=== PATIENT | female | born 1980 | race Caucasian/White ===

== ENCOUNTER 2019-11-03 09:03 | Outpatient (CLI) | payer OTHER, SELFPAY ==
--- NOTE | 2019-11-03 | EST_ITS ---
Patient Info Name: Zoe Magallon Age: 39 years : 1980 Gender: Female Ht: 66 in Wt: 165 lbs BSA: 1.88 m2 Technical Quality: Good Exam Date: 11/03/2019 9:31 AM Exam Location: [facility] Pulmonary Patient Status: Outpatient Admit Date: 11/03/2019 Staff Ordering Physician: LayAlona PA-C Blow Machine Tender Starch Spraying: Jennifer Naylor RDCS Attending Provider: VINICIO BAEZ DO Exercise Technologist: Roosevelt Lepe RDCS, RT Exercise Physician: Davdison Baez DO Exam Type: CA stress echo Study Info Indications R53.83 - Other fatigue Treadmill exercise stress echocardiogram is performed. Summary 1. 1. Negative [place] exercise stress test for ischemic ST changes by ECG criteria. 2. 2. Good functional capacity, achieving 10 METs of workload. 3. 3. Appropriate HR response to exercise. 4. 4. Appropriate HR recovery at 1 minute post exercise. 5. 5. Negative stress echocardiogram for ischemia by wall motion analysis. 6. 6. Patient informed of the above results. Stress Echo Findings Left Ventricle Appropriate increasein LV endocardial thickening with systole. Appropriate augmentation of contractility with systole. No wall motion abnormality. Left Ventricle Normal LV systolic function, no wall motion abnormality. Protocol: [place] Stress ECG Details Stage: REST Duration (min): 0 min : 55 sec Speed (mph): 0.0 Grade (%): 0 HR (bpm): 80 SBP (mmHg): 137 DBP (mmHg): 85 METS: --- Stage: REST Duration (min): 8 min : 14 sec Speed (mph): 0.0 Grade (%): 0 HR (bpm): 80 SBP (mmHg): 137 DBP (mmHg): 85 METS: --- Stage: STAGE 1 Duration (min): 1 min : 0 sec Speed (mph): 1.7 Grade (%): 10 HR (bpm): 113 SBP (mmHg): 137 DBP (mmHg): 85 METS: --- Stage: STAGE 1 Duration (min): 2 min : 0 sec Speed (mph): 1.7 Grade (%): 10 HR (bpm): 121 SBP (mmHg): 137 DBP (mmHg): 85 METS: --- Stage: STAGE 1 Duration (min): 3 min : 0 sec Speed (mph): 1.7 Grade (%): 10 HR (bpm): 126 SBP (mmHg): 152 DBP (mmHg): 69 METS: --- Stage: STAGE 2 Duration (min): 1 min : 0 sec Speed (mph): 2.5 Grade (%): 12 HR (bpm): 135 SBP (mmHg): 152 DBP (mmHg): 69 METS: --- Stage: STAGE 2 Duration (min): 2 min : 0 sec Speed (mph): 2.5 Grade (%): 12 HR (bpm): 142 SBP (mmHg): 166 DBP (mmHg): 72 METS: --- Stage: STAGE 2 Duration (min): 3 min : 0 sec Speed (mph): 2.5 Grade (%): 12 HR (bpm): 148 SBP (mmHg): 166 DBP (mmHg): 72 METS: --- Stage: STAGE 3 Duration (min): 1 min : 0 sec Speed (mph): 3.4 Grade (%): 14 HR (bpm): 159 SBP (mmHg): 170 DBP (mmHg): 72 METS: --- Stage: STAGE 3 Duration (min): 2 min : 0 sec Speed (mph): 3.4 Grade (%): 14 HR (bpm): 172 SBP (mmHg): 170 DBP (mmHg): 72 METS: --- Stage: STAGE 3 Duration (min): 3 min : 0 sec Speed (mph): 3.4 Grade (%): 14 HR (bpm): 171
== END 2019-11-03 09:04 | disposition home or self-care (01) ==
PROVIDERS: PCP Physician Assistant; Visit Provider Physician Assistant
DX: R53.83 Other fatigue (principal)
CPT/HCPCS: 93351

== ENCOUNTER 2021-12-02 11:53 | Outpatient (CLI) | payer OTHER, SELFPAY ==
--- NOTE | 2021-12-02 12:47 | ECG_ITS ---
Measurements Intervals [place] Rate: 82 P: 30 MS: 160 QRS: 16 QRSD: 82 T: 31 QT: 345 QTc: 403 Interpretive Statements SINUS RHYTHM NORMAL ECG Electronically Signed On 12-02-2021 13:14:13 [employer] by Davidson Wall D.O.
[2021-12-02 13:05] LABS: Basophils Absolute Auto 0.1 K/mm3 (0.0-0.1); Eosinophils Absolute Auto 0.1 K/mm3 (0-0.3); Eosinophils Percent Auto 1.4 % (0-4.4); Hematocrit 38.7 % (37.0-47.0); Hemoglobin 13.4 g/dL (12.0-15.0); Immature Granulocyte Absolute 0.01 K/mm3 (0.00-0.031); Immature Granulocyte Percent A 0.2 % (0-0.5); Lymphocytes Absolute Auto 1.57 K/mm3 (0.9-3.2); Lymphocytes Percent Auto 32.1 % (18.3-44.2); Mean Corpuscular HGB Conc 34.6 g/dl (32-36); Mean Corpuscular Hemoglobin 31.8 pg (26-34); Mean Corpuscular Volume 91.7 fl (80-100); Mean Platelet Volume 9.1 fl (7.4-10.4); Monocytes Absolute Auto 0.4 K/mm3 (0.1-0.6); Monocytes Percent Auto 7.8 % (2.6-8.5); Neutrophils Absolute Auto 2.8 K/mm3 (1.3-6.7); Neutrophils Percent Auto 57.5 % (45.5-73.1); Platelet Count Result 239 k/mm3 (150-375); Red Blood Count 4.22 M/mm3 (4.2-5.4); Red Cell Distribution Width 11.4 % (11.5-14.5); White Blood Count 4.9 K/mm3 (4.5-10.0)
[2021-12-02 13:17] LABS: Alanine Aminotransferase 18 U/L (4-35); Albumin Level 4.7 g/dL (3.5-5.1); Alkaline Phosphatase 48 U/L (38-126); Anion Gap 9 mmol/L (8-16); Aspartate Amino Transferase 26 U/L (14-36); Bilirubin,Total 0.6 mg/dL (0.2-1.3); Blood Urea Nitrogen 14 mg/dL (7-17); Calcium 9.5 mg/dL (8.4-10.2); Carbon Dioxide 28 mmol/L (22-30); Chloride 100 mmol/L (98-107); Estimated Glomerular Filt Rate > 60; Glucose 92 mg/dL (65-110); Potassium 4.1 mmol/L (3.4-5.0); Sodium 137 mmol/L (137-145)
[2021-12-02 13:20] LABS: INR 0.9; Prothrombin Time 12.1 Seconds (11.1-14.7)
[2021-12-02 13:21] LABS: Partial Thromboplastin Time 23.2 SECONDS (22.3-36.8)
== END 2021-12-02 11:54 | disposition home or self-care (01) ==
LOC: ANHSURGERY 11:58
PROVIDERS: PCP Physician Assistant; Visit Provider Urology
DX: N81.2 Incomplete uterovaginal prolapse (principal); N39.3 Stress incontinence (female) (male); Z51.81 Encounter for therapeutic drug level monitoring; Z79.899 Other long term (current) drug therapy
CPT/HCPCS: 36415; 80053; 85025; 85610; 85730; 86850; 86870; 86880; 86900; 86901; 86902; 86905; 86971; 87086; 93005

== ENCOUNTER → 2021-12-12 02:49 | Outpatient (CLI) | payer OTHER, SELFPAY ==
[2021-12-12 18:24] LABS: SARS-CoV-2 RNA PCR Negative
== END ==
PROVIDERS: PCP Physician Assistant; Visit Provider Urology
DX: Z01.812 Encounter for preprocedural laboratory examination (principal); Z20.822 Contact with and (suspected) exposure to COVID-19
CPT/HCPCS: C9803; U0003; U0005

== ENCOUNTER 2021-12-15 02:13 | Day surgery (SDC) | payer OTHER, SELFPAY ==
--- NOTE | 2021-12-02 11:51 | PC.NURSE ---
Report to the Outpatient Waiting Room, entrance under the green pavilion located off [facility], at time _0600_ on date _12/15/21_. OR Time: _0730__. - You and your visitor will be asked a series of questions to screen for COVID 19 for your protection. - A mask is required within the hospital. - NO visitors are allowed at this time. Patient visitors will be guided where to wait when not with patient. Preoperative COVID Testing Requirements: COVID TEST SCHEDULED FOR Wednesday12/12/21 @ 0920 No COVID Test needed if: (proof is required; if not received patient will have Rapid Test prior to entry) - Patient has received COVID Vaccine at least 14 days prior to procedure date or - Patient has positive COVID test result within last 90 days of surgery date. COVID Test needed if above criteria is not met If not COVID vaccinated a COVID test must be conducted within 72 hours of surgery and patient is asked to isolate self from time of testing until procedure. You will go to the [facility] for your COVID testing. The [facility] site is located at the corner of [address] [facility]. You will only be called if COVID results are positive and your surgeon may reschedule your elective surgery date. Patients may have clear liquids (water, carbonated beverages, clear teas, apple juice) until 3 hours prior to surgery with a maximum of 20 ounces. (0430 AM) - No food from midnight until time of surgery - Infants may have breast milk until 4 hours before surgery, infant formula 6 hours prior to surgery. - Children will be allowed to drink immediately following surgery. If applicable, please bring a bottle or sippy cup to assist with drinking. Juice, water, soda, and popsicles are readily available. For infants on formula, please bring formula the day of surgery. Pacifiers are allowed. Take the following medications with a SIP of water the morning of surgery: _TIROSINT, CYTOMEL___ Medications to discontinue per DR. BLOUNT - __ASPIRIN INSTRUCTED, PLAQUENIL & PHENTERMINE PER DR. MAYBERRY Please no make-up, nail bermudian, hairspray, perfume, deodorant, or body powder the day of surgery. No jewelry (including any body piercings) or valuables the day of surgery, leave them at home. Please take a shower or bath the night before, or the morning of, surgery with an antibacterial soap. Wear comfortable, loose fitting clothing. Children are encouraged to wear pajamas. - Jewelry must be removed prior to entering the operating room. Rings and piercings that are not removed may be cut off. - The hospital will not accept responsibility for valuables. - Please leave all valuables, including medications, at home the day of surgery. If you are going home after surgery, a licensed company truck driver must drive you home. - NO public transportation without another adult. - We recommend that an adult stay with you for 24 hours following discharge. - We also recommend that you do not drive, make important decision, drink alcoholic beverages, or take any drugs that were not prescribed by your health care provider for at least 24 hours after your discharge time. For Pediatric surgeries, we recommend two adults accompany the child home (only one inside the building at this time). Follow any additional instructions given to you from your surgeon. Telephone instructions given to ___PT and asked if any additional questions and then verbalized understanding. Patient advised to call surgeon office or pre surgery nurse liaison, [facility] @ [phone] if any additional questions.
[2021-12-02 12:21] VITALS: BP 142/88; PULSE 90; RESP 18; TEMP 37.1; O2SAT 98; BMI 25.1
--- NOTE | 2021-12-02 13:46 | PC.NURSE ---
ANNETTE WITH DR. JOSEPH' OFFICE INFORMED OF PT'S TRIP SCHEDULED 12/03/21 TO [facility] AND RETURNING 12/06/21 ALONG WITH PT [facility] HX OF STROKE DX 11/21/21 WITH F/O TESTING OF LUMBAR PUNCTURE, ECHO & MRA'S SCHEDULED 12/10/21 & 12/13/21 WELL APPT TO SEE NEUROSURGEON 01/22/22 FOR 6 BULGING DISK IN C-SPINE. STATES WILL INFORM DR. BLOUNT
--- NOTE | 2021-12-12 08:11 | P.HP_ITS ---
H&P: HPI History of Present Illness Date/Time: 12/12/21 08:11 41 yo female with POP and SONDRA Chief Complaint: POP/SONDRA Review of Systems Review of Systems: All systems reviewed & are unremarkable except as noted in HPI and below [facility] Social History Social History Smoking status: Former smoker Tobacco type: cigarettes Second hand tobacco smoke exposure: Yes (SOCIAL GATHERINGS) Smoking end date: 11/15/21 Additional smoking assessment comments: STATES SOCIAL SMOKER 1PK/MONTH/18YRS Alcohol intake: current Drinks per week: 6 Substance use: never Substance use type: does not use Spiritual care concerns: No Meds Home Medications and Allergies Home Medications Medication Instructions Recorded Confirmed Type aspirin 81 mg QAM 12/02/21 12/02/21 History atorvastatin [Lipitor] 40 mg PO HS 12/02/21 12/02/21 History hydroxychloroquine [Plaquenil] 200 mg PO BID 12/02/21 12/02/21 History levothyroxine [Tirosint] 150 mcg PO QAM 12/02/21 12/02/21 History liothyronine [Cytomel] 10 mcg PO BID 12/02/21 12/02/21 History phentermine 15 mg PO BID 12/02/21 12/02/21 History Allergies Allergy/AdvReac Type Severity Reaction Status Date / Time Sulfa (Sulfonamide AdvReac Rash Verified 12/02/21 12:16 Antibiotics) Exam Narrative: cystocele at +1. [place] at 0 to -1. + urethral mobility Assessment and Plan Assessment and plan (1) Uterine prolapse: Code(s): N81.4 - Uterovaginal prolapse, unspecified Status: Acute Assessment and Plan: robotic SCP (2) SONDRA (stress urinary incontinence, female): Code(s): N39.3 - Stress incontinence (female) (male) Status: Acute Assessment and Plan: urethral sling Additional Plan will need anticoagulation
--- NOTE | 2021-12-14 09:42 | PM.IMHP ---
H&P: HPI History of Present Illness Date/Time: 12/14/21 09:42 41-year-old multiparous who is admitted for robotic supracervical hysterectomy and bilateral salpingectomy secondary to uterine prolapse. She complains of a bulge and chronic discomfort. She wears pads and leaks small amounts urine daily she leaks with coughing laughing and sneezing. She has been evaluated by Dr. Olivia and undergo a sacral colpopexy some attaining asleep. Risks and benefits of this procedure reviewed by Dr. mercado and agree details. Chief Complaint: Uterine prolapse Review of Systems Review of Systems: All systems reviewed & are unremarkable except as noted in HPI and below [facility] Social History Social History Smoking status: Former smoker Tobacco type: cigarettes Second hand tobacco smoke exposure: Yes (SOCIAL GATHERINGS) Smoking end date: 11/15/21 Additional smoking assessment comments: STATES SOCIAL SMOKER 1PK/MONTH/18YRS Alcohol intake: current Drinks per week: 6 Substance use: never Substance use type: does not use Spiritual care concerns: No Meds Home Medications and Allergies Home Medications Medication Instructions Recorded Confirmed Type aspirin 81 mg QAM 12/02/21 12/02/21 History atorvastatin [Lipitor] 40 mg PO HS 12/02/21 12/02/21 History hydroxychloroquine [Plaquenil] 200 mg PO BID 12/02/21 12/02/21 History levothyroxine [Tirosint] 150 mcg PO QAM 12/02/21 12/02/21 History liothyronine [Cytomel] 10 mcg PO BID 12/02/21 12/02/21 History phentermine 15 mg PO BID 12/02/21 12/02/21 History Allergies Allergy/AdvReac Type Severity Reaction Status Date / Time Sulfa (Sulfonamide AdvReac Rash Verified 12/02/21 12:16 Antibiotics) Exam Const: General: no acute distress Eyes: General: appearance normal, both eyes and all related structures Neck: Neck: supple and no JVD Thyroid: thyroid normal Resp: Effort & Inspection: normal respiratory effort Auscultation: clear to auscultation bilaterally Cardio: Rate: regular rate Rhythm: regular rhythm GI: Inspection: non-distended GI Palp: Yes Soft to palpation, No Tenderness to palpation present (GI) and No Guarding due to palpation present (GI) Auscultation: normal bowel sounds : External Female Exam: normal external appearance Speculum Exam - Vagina: normal appearance of the vagina Speculum Exam - Cervix: Cervical os closed (Second-degree prolapse) Bimanual exam- vagina & uterus: uterine shape normal Bimanual Exam- Adnexa, other: normal adnexae Skin: General skin exam: no rashes or lesions noted Extrem: General: normal to inspection and no edema Psych: Mental Status: mental status grossly normal Affect: normal affect Assessment and Plan Additional Plan Impression: Uterine prolapse Plan: Robotic supracervical hysterectomy and bilateral salpingectomy
[2021-12-15] VITALS (12 sets, daily range): BP systolic 100–135; BP diastolic 57–81; PULSE 72–104; RESP 10–18; TEMP 36.3–37.3; O2SAT 96–100
[2021-12-15] MEDS: ACETAMINOPHEN 500 MG TABLET 1000 MG PO (06:16)
[2021-12-15] MEDS: KETOROLAC 15 MG/ML VIAL (*BKC) IV PUSH (06:26)
[2021-12-15] MEDS: LACTATED RINGERS 1,000 ML 30 ML IV CONT ×2 (06:30→11:00)
--- NOTE | 2021-12-15 06:58 | WPDANESEPPF ---
Anes - Initial Pre Proc Eval Procedure: Operation Date: 12/15/21 07:30 Proposed Procedures p Robotic Sacrocolpopexy - Josh Harman MD s Urethral Sling - Josh Harman MD s Robotic Assisted Supracervical Hysterectomy with Bilateral Salpingectomy - Jase Gallo MD Date/Time: 12/15/21 06:58 Surgeon: Josh Harman MD Pre Op Diagnosis: incomplete uterovaginal prolapse, stress in cont Patient Data Age: 41 Gender: F Height: 1.66 m Weight: 70.5 kg Last Vital Signs Temp 36.8 C 12/15/21 06:03 Pulse 74 12/15/21 06:03 Resp 16 12/15/21 06:03 BP 135/81 12/15/21 06:03 Pulse Ox 100 12/15/21 06:03 Allergies Allergy/AdvReac Type Severity Reaction Status Date / Time Sulfa (Sulfonamide AdvReac Intermediate Rash Verified 12/15/21 06:12 Antibiotics) Home Medications Medication Instructions Recorded Confirmed Type aspirin 81 mg QAM 12/02/21 12/15/21 History atorvastatin [Lipitor] 40 mg PO HS 12/02/21 12/15/21 History hydroxychloroquine [Plaquenil] 200 mg PO BID 12/02/21 12/15/21 History levothyroxine [Tirosint] 150 mcg PO QAM 12/02/21 12/15/21 History liothyronine [Cytomel] 10 mcg PO BID 12/02/21 12/15/21 History phentermine 15 mg PO BID 12/02/21 12/15/21 History Patient hx anesthesia problems: post op nausea/vomiting Family hx anesthesia problems: none Results Review: All pre-operative results and documents have been reviewed as part of the pre-operative evaluation. [facility] Past Medical History Medical History CVA (cerebral vascular accident) Hyperlipidemia Pulmonary embolism Rheumatoid arthritis Social History Social History Smoking status: Former smoker Tobacco type: cigarettes Second hand tobacco smoke exposure: Yes (SOCIAL GATHERINGS) Smoking end date: 11/15/21 Additional smoking assessment comments: STATES SOCIAL SMOKER 1PK/MONTH/18YRS Alcohol intake: current Drinks per week: 6 Substance use: never Substance use type: does not use Living arrangements: with family Spiritual care concerns: No Anes - Eval Final PreProcedure Day of Procedure 12/15/21 06:58 Patient weight: normal Heart: regular rate and rhythm Lungs: clear to auscultation Airway: Mallampati scale class II Neurological: alert and oriented Last oral intake: >/= 8 hours ASA classification: III Emergent: no Anesthetic plan: proceed Anesthesia type and monitoring: general ETT and standard monitoring Results Review: All pre-operative results and documents have been reviewed as part of the pre-operative evaluation. Informed Consent: The patient's anesthetic plan and its attendant risks and benefits were discussed with the patient/family/POA. Questions were solicited and answers provided to the satisfaction of the patient/family/POA.
--- NOTE | 2021-12-15 07:06 | WPDHPUPDATE1 ---
History and Physical Update Update Date/Time: 12/15/21 07:06 History and Physical has been reviewed, including an updated exam of the patient. There are NO changes in the patient's condition. Risks, benefits, and alternatives have been discussed and questions answered. Patient agrees to proceed with procedure.
--- NOTE | 2021-12-15 07:20 | WPDHPUPDATE1 ---
History and Physical Update Update Date/Time: 12/15/21 07:20 History and Physical has been reviewed, including an updated exam of the patient. There are NO changes in the patient's condition. Risks, benefits, and alternatives have been discussed and questions answered. Patient agrees to proceed with procedure.
[2021-12-15] MEDS: HEPARIN SODIUM 5,000 UNITS/ML VIAL 5000 UNITS SUB-Q (07:23)
[2021-12-15] MEDS: SCOPOLAMINE 1.5 MG PATCH TRANSDERM (07:24)
[2021-12-15] MEDS: ceFAZolin 2 GM/D5W 50 ML 2 GM/50 ML BAG IVPB (07:33)
[2021-12-15] MEDS: metroNIDAZOLE 500 MG/ISO 100ML 500 MG/100 ML BAG 100 MG IVPB ×2 (07:45→16:19)
[2021-12-15] MEDS: BUPIVACAINE/EPINEPHRINE 0.25% 10 ML VIAL 20 ML INFILTRATE (08:34)
--- NOTE | 2021-12-15 08:36 | W.PM.PROC2 ---
Procedure Note - Detailed Date of Procedure 12/15/21 Pre-op Diagnosis incomplete uterovaginal prolapse, stress in cont Post-op Diagnosis same Procedure Performed Robotic supracervical hysterectomy and bilateral salpingectomy Surgeon Arnel Jc MD Anesthesia general Indications This is a 41-year-old female with uterine prolapse and history of partial salpingectomy on the left due to an ectopic Findings Portion of left fallopian tube was present. Normal-appearing ovaries and normal-appearing right tube. Uterine prolapse was present with the normal in size uterus Description of Procedure The patient was prepped and draped in the normal sterile fashion placed in the dorsal lithotomy position. Under excellent general trach anesthesia weighted speculum placed posterior fornix vagina. Anterior lip of cervix grasped with single-tooth tenaculum and a Denney's cannula inserted to attached to be attached later for uterine manipulation. The bladder was then drained with a 16 [place]ic catheter. The gloves were changed and Dr. Harman proceeded to dock the robot. Please see his operative report for full details. Once robot was docked the left fallopian tube was grasped and that portion removed without difficulty. A the right fallopian tube was then grasped and from its ovarian connection and brought to its origin in the uterus. Next the left round ligament grasped, burned, cut. Anteriorly a bladder flap was formed by sharply dissecting the peritoneum and reflecting the bladder caudally to the opposite round ligament which was clamped, burned, cut. Next the utero-ovarian ligament on the left was skeletonized to conserve the left ovary this was clamped, burned, cut brought to the level of previously cut round ligament. In like fashion the right ovary was conserved by clamping burning and cutting the utero-ovarian ligament on the right and brought to the level of previously cut round ligament. The left cardinal and broad ligaments were then serially skeletonized clamping burning cutting hugging the cervix and uterus until the uterine vessels could be seen on the left. These were individually clamped, burned, cut. In like fashion the cardinal broad ligaments on the right were serially skeletonized. These were clamped, burned, cut hugging the cervix and uterus until the uterine vessels could be seen on the right. These were individually clamped, burned, cut. Blanching the uterus was seen after blood supply was controlled the uterus was then bivalved down to the supracervical portion and a supracervical incision was made and the uterus passed off in a bag under to have descent. Blood loss at that point was 5cc. Dr. Harman took over from there. All sponge, needle, instrument counts were correct and the patient was doing well the time of this dictation blood loss to this point was 25cc Estimated Blood Loss 25 Drains No Packing No Pathology yes Complications No immediate complications Condition stable Disposition no change
--- NOTE | 2021-12-15 10:49 | W.PM.PROC2 ---
Procedure Note - Detailed Date of Procedure 12/15/21 Pre-op Diagnosis incomplete uterovaginal prolapse, stress incontinence Post-op Diagnosis same Procedure Performed Robotic assisted laparoscopic sacral colpopexy Cystoscopy Surgeon Josh Harman MD Anesthesia general Indications A woman with uterine prolapse as well as stress incontinence. She desires surgical correction. She is here for the above. She understands risks of bleeding, infection, diskitis, damage to surrounding organs, bowel injury, bowel obstruction, mesh related complications including exposure and extrusion, postoperative voiding dysfunction including incontinence and retention, need for ancillary procedures, dyspareunia, recurrence of prolapse, and other perioperative intraoperative postoperative complications. She agrees to proceed. Findings See below Description of Procedure She was correctly identified. Informed consent obtained. She from the operating room. She was given general anesthesia. She was given appropriate perioperative antibiotics. She was placed a low lithotomy position. Pressure points were padded. A time-out performed. She has a history of DVT and pulmonary embolus. Bilateral SCDs were placed. She was given preoperative heparin. She will be sent home on Lovenox. She understands she is at higher risk of thromboembolic disease. I marked out the skin 3 fingerbreadths cephalad to the umbilicus. I anesthetized the skin. I incised the skin. I dissected down to the fascia. I grasped the fascia with Amador clamps. I entered the fascia sharply in a type technique. I placed sutures for later fascial closure. I placed a midline trocar. I examined the abdomen. There is no sign of any injury. Under direct vision I placed 2 additional trocars in the right upper quadrant and 2 additional trocars the left upper quadrant. She was placed in steep Trendelenburg. The robot was docked. Her pearl technician completed their portion of the procedure. Please see that operative report for details. I then sat at the console. The Sizer in the vagina created plane on the anterior and posterior vaginal wall. I took great care not to injure the vagina, bladder, or rectum. I introduced the mesh into the abdomen. I sewed the anterior leaflet of mesh on the anterior vaginal wall. I sewed the posterior leaflet of mesh on the posterior vaginal wall. This was done with several sutures of 2 0 [place]. I reflected the colon laterally. I opened the posterior peritoneum over the sacral promontory. I carried this into the cul-de-sac. I freed up the edges for later retroperitonealization. I located the anterior longitudinal ligament the sacrum. I cleaned off all fatty tissues. I then tensioned my mesh appropriately. I did a vaginal exam the bedside. I assured prolapse reduction without undue tension. I then sewed the proximal leaflet of mesh onto the anterior longitudinal ligament of the sacrum with several sutures of 2 0 [place]. I then used a 2 0 Monocryl to completely and meticulously retroperitonealized all mesh. I allowed the colon to go back to its normal anatomic location. There is no sign of any impingement. The specimen was then removed. All ports removed. Fascia was tied down. Skin was closed with Monocryl and surgical glue. She was repositioned and prepped for urethral sling. I marked out the inner thigh incisions. I anesthetized the skin and made the incisions. I then anesthetized the anterior vaginal wall at the mid urethra. I made a 1 cm incision. I dissected out laterally. I noted some blood at the meatus. This prompted me to perform a cystoscopy. Her bladder is examined. There was no bladder injury. There is no tumors, stones, foreign bodies, stitches, abnormal red patches. Both ureters were seen to excrete clear yellow urine. I then looked at the bladder neck. There was some trauma to the urethra bladder neck junction at the 7 o'cl
[2021-12-15] MEDS: ONDANSETRON INJ 4 MG/2 ML VIAL IV PUSH ×2 (10:55→11:55)
[2021-12-15] MEDS: fentaNYL CITRATE INJ (*CRX) 100 MCG/2 ML VIAL 25 MCG IV PUSH (11:56)
--- NOTE | 2021-12-15 12:15 | PC.NURSE ---
This patient, Zoe Magallon, was received from PACU on 12/15/21 at 1215. Patient/family oriented to unit policies and routines
[2021-12-15] MEDS: KCL 20 MEQ/D5/0.45% SOD CHL 1,000 ML 100 ML IV CONT (12:51)
[2021-12-15] MEDS: KETOROLAC 30 MG/ML VIAL (*BKC) IV PUSH ×2 (12:54→19:07)
[2021-12-15] MEDS: MORPHINE SULFATE (*CRX) 2 MG/ML INJ IV PUSH ×5 (14:10→23:08)
[2021-12-15] MEDS: SIMETHICONE 80 MG TAB.CHEW PO ×4 (15:11→23:08)
[2021-12-16] MEDS: metroNIDAZOLE 500 MG/ISO 100ML 500 MG/100 ML BAG 100 MG IVPB ×2 (00:05→08:24)
[2021-12-16] MEDS: SIMETHICONE 80 MG TAB.CHEW PO ×3 (01:09→08:32)
[2021-12-16] MEDS: KETOROLAC 30 MG/ML VIAL (*BKC) IV PUSH (01:09)
[2021-12-16 04:50] VITALS: BP 100/58; PULSE 64; RESP 16; TEMP 37; O2SAT 98
[2021-12-16] MEDS: traMADol HCL (*CRX) 50 MG TABLET PO ×2 (04:55→08:31)
--- NOTE | 2021-12-16 07:27 | PM.DS ---
DS: Admitting Diagnosis Discharge Date 12/16/2021 Admitting Diagnosis uterine prolapse /stress urinary incontinence DS: Summary Hospital Course Hospital Course: patient was admitted for supracervical hysterectomy bilateral salpingectomy as well as sacral colpopexy and. Sling. The procedure was remarkable for not performing the sling by Dr. Harman. There was some blood in the urethral meatus and he elected not to perform that portion. We also elected to keep the catheter and. Her hospital course was otherwise unremarkable. She remained afebrile. She was up, , ambulating, generally without complaints. Time Spent with Patient Time attestation: Total time spent providing and/or coordinating discharge services: Exam Const: General: no acute distress Eyes: General: appearance normal, both eyes and all related structures Neck: Neck: supple and no JVD Thyroid: thyroid normal Resp: Effort & Inspection: normal respiratory effort Auscultation: clear to auscultation bilaterally Cardio: Rate: regular rate Rhythm: regular rhythm GI: Inspection: non-distended GI Palp: Yes Soft to palpation, No Tenderness to palpation present (GI) and No Guarding due to palpation present (GI) Auscultation: normal bowel sounds : General: Yes bladder normal to palpation External Female Exam: normal external appearance Speculum Exam - Vagina: normal vaginal discharge and No vaginal bleeding Speculum Exam - Cervix: nontender Bimanual exam- vagina & uterus: bladder normal to palpation and No Cervical tenderness present OB/external & speculum: No vaginal bleeding Skin: General skin exam: no rashes or lesions noted Extrem: General: normal to inspection and no edema Psych: Mental Status: mental status grossly normal Affect: normal affect DS: Data Data Completed and Pending Pending studies at discharge: Pending at discharge 12/15/21 08:24 Surgical [PTH] Routine Discharge Plan Discharge Patient Disposition: Home, Self-Care Discharge Instructions: Remove the Scopolamine patch that was placed behind your ear in 72 hours or less. Wash your hands after touching. Stand Alone Forms: General Discharge Instructions Discharge Medications: New docusate sodium [Colace] 100 mg capsule 100 mg PO BID Qty: 60 RF: 0 hydrocodone-acetaminophen 5-325 mg tablet 1 tablet PO Q6H PRN (Reason: pain) Qty: 20 RF: 0 enoxaparin [Lovenox] 30 mg/0.3 mL syringe 30 mg subcut DAILY 10 Days Qty: 3 RF: 0 Continued atorvastatin [Lipitor] 40 mg Tablet 40 mg PO HS RF: 0 phentermine 15 mg Capsule 15 mg PO BID RF: 0 liothyronine [Cytomel] 5 mcg Tablet 10 mcg PO BID RF: 0 hydroxychloroquine [Plaquenil] 200 mg tablet 200 mg PO BID RF: 0 levothyroxine [Tirosint] 150 mcg capsule 150 mcg PO QAM RF: 0 Held aspirin 81 mg tablet,delayed release (DR/EC) 81 mg QAM RF: 0 Hold Instructions: Resume on 12/17/21.
--- NOTE | 2021-12-16 07:30 | PM.GYNPNOP ---
IMMIGRATION CONSULTANT - A/P Postoperative Procedures: Procedures Operation Date: 12/15/21 07:30 Actual Procedure Side Surgeon p Robotic Sacrocolpopexy Josh Harman MD s Urethral Sling Josh Harman MD s Robotic Assisted Supracervical Hysterectomy with Bilateral Salpingectomy Bilateral Arnel Jc MD Time Spent With Patient Time: Total time spent is greater than 50% in coordination of care (as documented) at patient's floor/unit and/or counseling patient: Time with patient: less than 15 minutes IMMIGRATION CONSULTANT- PN:Subj Post-Op Subjective Date/time seen: 12/16/21 07:30 No complaints Review of Systems Review of Systems: All systems reviewed & are unremarkable except as noted in HPI and below Exam Const: General: no acute distress Eyes: General: appearance normal, both eyes and all related structures Neck: Neck: supple and no JVD Thyroid: thyroid normal Resp: Effort & Inspection: normal respiratory effort Auscultation: clear to auscultation bilaterally Cardio: Rate: regular rate Rhythm: regular rhythm GI: Inspection: non-distended GI Palp: Yes Soft to palpation, No Tenderness to palpation present (GI) and No Guarding due to palpation present (GI) Auscultation: normal bowel sounds : General: Yes bladder normal to palpation External Female Exam: normal external appearance Speculum Exam - Vagina: normal vaginal discharge and No vaginal bleeding Speculum Exam - Cervix: nontender Bimanual exam- vagina & uterus: bladder normal to palpation and No Cervical tenderness present OB/external & speculum: No vaginal bleeding Skin: General skin exam: no rashes or lesions noted Extrem: General: normal to inspection and no edema Psych: Mental Status: mental status grossly normal Affect: normal affect IMMIGRATION CONSULTANT - PN: Obj Data Vital Signs Vital Signs: Vital Signs - 24 hr 12/15/21 10:33 12/15/21 10:45 12/15/21 11:00 Temperature 98.7 F Pulse Rate 104 H 85 85 Respiratory Rate 10 L 18 15 Blood Pressure 113/62 113/57 L 104/61 Pulse Oximetry 96 97 100 12/15/21 11:15 12/15/21 11:30 12/15/21 11:45 Temperature Pulse Rate 94 90 85 Respiratory Rate 15 17 16 Blood Pressure 110/64 111/68 109/69 Pulse Oximetry 98 100 98 12/15/21 12:00 12/15/21 12:15 12/15/21 16:00 Temperature 97.4 F L 97.9 F Pulse Rate 87 80 102 H Respiratory Rate 11 L 16 16 Blood Pressure 109/65 101/63 116/72 Pulse Oximetry 99 100 98 12/15/21 19:15 12/15/21 23:15 12/16/21 04:50 Temperature 99.2 F 98.4 F 98.6 F Pulse Rate 87 72 64 Respiratory Rate 16 16 16 Blood Pressure 104/63 100/65 100/58 L Pulse Oximetry 99 99 98 Intake/Output Intake/Output: Intake & Output 12/13/21 12/14/21 12/15/21 12/16/21 23:59 23:59 23:59 23:59 Intake Total 2560 1100 Output Total 2650 350 Balance -90 750 Meds/Results Medications: Active Medications Generic Name Dose Route Start Last Admin Trade Name Freq PRN Reason Stop Dose Admin Acetaminophen 650 mg 12/15/21 12:08 Acetaminophen 325 Mg Tablet PO Q4H PRN Mild Pain (1-3) or Fever Atorvastatin Calcium 40 mg 12/15/21 21:00 12/15/21 21:38 Atorvastatin 40 Mg Tablet PO Not Given HS KILEY Cephalexin HCl 500 mg 12/16/21 13:00 Cephalexin 500 Mg Capsule PO QID KILEY Diphenhydramine HCl 25 mg 12/15/21 12:08 Diphenhydramine Hcl Inj 50 Mg/Ml Vial IV PUSH Q6H PRN Itching Docusate Sodium 100 mg 12/15/21 12:08 12/15/21 14:13 Docusate Sodium 100 Mg Capsule PO Not Given DAILY KILEY Enoxaparin Sodium 30 mg 12/16/21 09:00 Enoxaparin 30 Mg/0.3 Ml Syringe SUB-Q DAILY KILEY Hydroxychloroquine Sulfate 200 mg 12/15/21 12:08 12/15/21 21:38 Hydroxychloroquine Sulfate 200 Mg Tablet PO Not Given Q12HR KILEY Metronidazole 500 mg in 100 mls @ 100 mls/hr 12/15/21 16:00 12/16/21 01:05 Flagyl 500 Mg/Iso Soln 100 Ml IVPB Infused Q8H KILEY Infusion Potassium Chloride/Dextrose/Sod Cl 1,000 mls @ 100 mls/hr 12/15/21 12:08 02
[2021-12-16 08:10] VITALS: BP 106/71; PULSE 74; RESP 16; TEMP 37; O2SAT 97
[2021-12-16] MEDS: DOCUSATE SODIUM 100 MG CAPSULE PO (08:26)
[2021-12-16] MEDS: ENOXAPARIN 30 MG/0.3 ML SYRINGE SUB-Q (08:26)
[2021-12-16] MEDS: LIOTHYRONINE SODIUM 5 MCG TABLET 10 MCG PO (08:27)
[2021-12-16] MEDS: HYDROXYCHLOROQUINE SULFATE 200 MG TABLET PO (08:27)
[2021-12-16] MEDS: LEVOTHYROXINE SODIUM 150 MCG TABLET PO (08:31)
== END 2021-12-16 10:40 | disposition home or self-care (01) ==
LOC: ANHSURGERY 07:26 → ANHOB2 12:15
PROVIDERS: Obstetrics & Gynecology; PCP Physician Assistant; Visit Provider Urology
PROC: (CPT 57425; principal; 2021-12-15 07:30)
PROC: (CPT 57425; 2021-12-15 07:30)
PROC: 0UT94ZZ Resection of Uterus, Percutaneous Endoscopic Approach (ICD-10-PCS; CPT 57425; 2021-12-15 07:30)
DX: N81.2 Incomplete uterovaginal prolapse (principal); N39.3 Stress incontinence (female) (male); N80.0 Endometriosis of uterus; N83.8 Other noninflammatory disorders of ovary, fallopian tube and broad ligament; E78.5 Hyperlipidemia, unspecified; M06.9 Rheumatoid arthritis, unspecified; Z86.73 Personal history of transient ischemic attack (TIA), and cerebral infarction without residual deficits; Z86.711 Personal history of pulmonary embolism; Z87.891 Personal history of nicotine dependence; Z79.82 Long term (current) use of aspirin
CPT/HCPCS: 57425; 58542; S2900; 36415; 86922; 88307; 99199; A9270; C1781; C9290; J0690; J1100; J1200; J1644; J1650; J1885; J2250; J2270; J2405; J2704; J2710; J3010; J3480; J7030; J7120

== ENCOUNTER 2022-10-10 10:09 | Emergency (ER) | payer SELFPAY ==
[2022-10-10 10:29] VITALS: BP 125/81; PULSE 89; RESP 16; TEMP 36.7; O2SAT 100
--- NOTE | 2022-10-10 10:40 | ED.URI ---
HPI - URI/Sore Throat General Chief Complaint: Upper Respiratory Infection Stated Complaint: lt ear pain, cough, sinus drainage Time Seen by Provider: 10/10/22 10:33 Source: patient Mode of arrival: ambulatory Limitations: no limitations History of Present Illness HPI Narrative: Zoe is a 42-year-old female patient presenting to clinic today with complaints of left ear pain, cough, and sinus drainage times 10 days. She reports she is bringing up some yellow phlegm. Does report some sinus pressure as well. Has recently gotten back from [place]. MD elicited complaint: sore throat and nasal congestion Related Data Home Medications Medication Instructions Recorded Confirmed aspirin 81 mg tablet,delayed 81 mg PO QAM 12/02/21 10/10/22 release atorvastatin 40 mg tablet (Lipitor) 40 mg PO HS 12/02/21 10/10/22 hydroxychloroquine 200 mg tablet 200 mg PO BID 12/02/21 10/10/22 (Plaquenil) levothyroxine 150 mcg capsule 150 mcg PO QAM 12/02/21 10/10/22 (Tirosint) liothyronine 5 mcg tablet (Cytomel) 10 mcg PO BID 12/02/21 10/10/22 phentermine 15 mg capsule 15 mg PO BID 12/02/21 10/10/22 adalimumab 40 mg/0.4 mL 40 mg subcut DIRECTED 10/10/22 10/10/22 subcutaneous pen kit (Humira(CF) Pen) folic acid 1 mg tablet 1 mg PO DAILY 10/10/22 10/10/22 gabapentin 300 mg capsule 300 mg PO DIRECTED 10/10/22 10/10/22 Allergies Allergy/AdvReac Type Severity Reaction Status Date / Time Sulfa (Sulfonamide AdvReac Intermediate Rash Verified 10/10/22 10:36 Antibiotics) Review of Systems Review of Systems: Pertinent positives per HPI. Patient denies any fever, chills, rash, visual changes, dizziness, shortness of breath, chest pain, palpitations, nausea, vomiting, diarrhea, constipation, abdominal pain, or any urinary issues. [facility] Past Medical History Medical History CVA (cerebral vascular accident) Hyperlipidemia Pulmonary embolism Rheumatoid arthritis Social History Social History Smoking status: Former smoker Tobacco type: cigarettes Second hand tobacco smoke exposure: Yes (SOCIAL GATHERINGS) Smoking end date: 11/15/21 Additional smoking assessment comments: STATES SOCIAL SMOKER 1PK/MONTH/18YRS Alcohol intake: current Drinks per week: 6 Substance use: never Substance use type: does not use Spiritual care concerns: No Comments At the time of my signature, I reviewed and agree with the nursing past medical, surgical, social, and family history. There is no relevant family history pertinent to the patient complaint. Exam Narrative: General: Well-developed, well nourished, in no apparent distress Head: Normocephalic, atraumatic Eyes: Pupils equally round and reactive to light bilaterally, EOM intact, sclera and conjunctive clear, no discharge, lids normal Ears: TMs intact and dull and bulging, ear canals clear, no drainage, grossly hearing normal. Nose: Nares patent, yellow nasal discharge, severe inflammation, frontal and maxillary sinus tenderness. Mouth: Oral pharynx without lesions or masses, good dentition, MMM. Postnasal drip Neck: Supple, trachea midline, no enlargement of anterior or posterior cervical nodes, no thyroid masses or goiter palpable. Cardio: Regular rate and rhythm, s1 and s2 normal, no murmur appreciated. Resp: Clear to auscultation bilaterally, no rhonchi, rales, wheezing or rubs Course Course Emergency Course: Portions of this record may have been created with voice recognition software. Level of Care: Express Care Visit Vital Signs Vital signs: Vital Signs Temperature 36.7 C 10/10/22 10:29 Pulse Rate 89 10/10/22 10:29 Respiratory Rate 16 10/10/22 10:29 Blood Pressure 125/81 10/10/22 10:29 Pulse Oximetry 100 10/10/22 10:29 Temperature 36.7 C 10/10/22 10:29 Pulse Rate 89 10/10/22 10:29 Respiratory Rate
== END 2022-10-10 10:47 | disposition home or self-care (01) ==
PROVIDERS: Emergency Provider Nurse Practitioner Family; PCP Physician Assistant
DX: J01.90 Acute sinusitis, unspecified (principal); B96.89 Other specified bacterial agents as the cause of diseases classified elsewhere; E78.5 Hyperlipidemia, unspecified; M06.9 Rheumatoid arthritis, unspecified; Z87.891 Personal history of nicotine dependence; Z79.82 Long term (current) use of aspirin; Z86.73 Personal history of transient ischemic attack (TIA), and cerebral infarction without residual deficits
CPT/HCPCS: 99213; G0463

== ENCOUNTER 2022-10-21 15:22 | Emergency (ER) | payer OTHER, SELFPAY ==
--- NOTE | ~2022-10-21 | XR_ITS ---
EXAMINATION: XR chest 2V Exam Date/Time: 10/21/2022 15:53 WAXER HISTORY: COUGH X 2 WEEKS Comparison: 06/30/2009, CTPA 07/29/2011. RESULT: Lines, tubes, and devices: None. Lungs and pleura: Clear. Cardiomediastinal silhouette: Stable. Other: No acute osseous or upper abdominal finding. IMPRESSION: No acute cardiopulmonary process. Reviewed, dictated and finalized at location K. R
[2022-10-21 15:29] VITALS: BP 117/80; PULSE 83; RESP 16; TEMP 36.9; O2SAT 100
--- NOTE | 2022-10-21 15:46 | ED.URI ---
HPI - URI/Sore Throat General Chief Complaint: Upper Respiratory Infection Stated Complaint: SINUS/CHEST CONGESTION Time Seen by Provider: 10/21/22 15:48 Source: patient and RN notes reviewed Mode of arrival: ambulatory Limitations: no limitations History of Present Illness HPI Narrative: 42 y/o female with hx RA, CVA, PE, presented for c/o sinus congestion and cough for almost 2 weeks. States cough is productive of green sputum. Endorses fatigue but unsure if it is her baseline. Also reports left ear pressure and popping with blowing nose. Taking Humira and methotrexate. Patient was treated for sinusitis and left ear fluid 10/10/22 with steroid and Augmentin. Reports compliance but states she had minimal improvement and is concerned about pneumonia due to her immunocompromised state. Denies tinnitus, dizziness, sob, wheezing, n/v/d/f/c. MD elicited complaint: cough Related Data Home Medications Medication Instructions Recorded Confirmed aspirin 81 mg tablet,delayed 81 mg PO QAM 12/02/21 10/21/22 release atorvastatin 40 mg tablet (Lipitor) 40 mg PO HS 12/02/21 10/21/22 hydroxychloroquine 200 mg tablet 200 mg PO BID 12/02/21 10/21/22 (Plaquenil) levothyroxine 150 mcg capsule 150 mcg PO QAM 12/02/21 10/21/22 (Tirosint) liothyronine 5 mcg tablet (Cytomel) 10 mcg PO BID 12/02/21 10/21/22 phentermine 15 mg capsule 15 mg PO BID 12/02/21 10/21/22 adalimumab 40 mg/0.4 mL 40 mg subcut DIRECTED 10/10/22 10/21/22 subcutaneous pen kit (Humira(CF) Pen) folic acid 1 mg tablet 1 mg PO DAILY 10/10/22 10/21/22 gabapentin 300 mg capsule 300 mg PO DIRECTED 10/10/22 10/21/22 Allergies Allergy/AdvReac Type Severity Reaction Status Date / Time Sulfa (Sulfonamide AdvReac Intermediate Rash Verified 10/21/22 15:35 Antibiotics) Review of Systems Review of Systems: ROS per HPI PMFSH Past Medical History Medical History CVA (cerebral vascular accident) Hyperlipidemia Pulmonary embolism Rheumatoid arthritis Social History Social History Smoking status: Former smoker Tobacco type: cigarettes Second hand tobacco smoke exposure: Yes (SOCIAL GATHERINGS) Smoking end date: 11/15/21 Additional smoking assessment comments: STATES SOCIAL SMOKER 1PK/MONTH/18YRS Alcohol intake: current Drinks per week: 6 Substance use: never Substance use type: does not use Spiritual care concerns: No Exam Narrative: GENERAL: well-appearing EYES: PERRLA, conjunctivae clear ENT: Mucous membranes moist. TMs pearly mercer with dull light reflex bilaterally; no tragal tenderness. Oropharynx normal without lesions or exudate NECK: Supple. No lymphadenopathy CHEST: Clear to auscultation, breath sounds equal. HEART: Regular rate and rhythm. No murmur heard. SKIN: Warm, dry, no rash. NEURO: Alert and oriented x3. PSYCH: Normal mood and affect Course Course Emergency Course: Patient is aware of diagnosis, understands and agrees to treatment plan. Anticipatory guidance given. Patient agrees to follow-up as directed and is aware of reasons to seek care at the emergency department. Portions of this record may have been created with voice recognition software Level of Care: Express Care Visit Vital Signs Vital signs: Vital Signs Temperature 98.4 F 10/21/22 15:29 Pulse Rate 83 10/21/22 15:29 Respiratory Rate 16 10/21/22 15:29 Blood Pressure 117/80 10/21/22 15:29 Pulse Oximetry 100 10/21/22 15:29 Oxygen Delivery Room Air 10/21/22 15:29 Temperature 98.4 F 10/21/22 15:29 Pulse Rate 83 10/21/22 15:29 Respiratory Rate 16 10/21/22 15:29 Blood Pressure 117/80 10/21/22 15:29 Pulse Oximetry 100 10/21/22 15:29 Oxygen Delivery Room Air 10/21/22 15:29 reviewed MDM - URI/Sore Throat MDM Narrative Medical decision making narrative: CXR result reviewed with pt.
== END 2022-10-21 16:25 | disposition home or self-care (01) ==
PROVIDERS: Emergency Provider Nurse Practitioner Family; PCP Physician Assistant
DX: J06.9 Acute upper respiratory infection, unspecified (principal); Z87.891 Personal history of nicotine dependence; E78.5 Hyperlipidemia, unspecified; M06.9 Rheumatoid arthritis, unspecified; Z86.711 Personal history of pulmonary embolism; Z86.73 Personal history of transient ischemic attack (TIA), and cerebral infarction without residual deficits; Z79.82 Long term (current) use of aspirin
CPT/HCPCS: 71046; 99213; G0463

== ENCOUNTER → 2022-12-25 11:44 | Outpatient (CLI) | payer OTHER, SELFPAY ==
--- NOTE | ~2022-12-25 | MM_ITS ---
EXAMINATION: MM screening gerardo BI w neymar HISTORY: Screening mammogram TECHNIQUE: Craniocaudal and mediolateral oblique 3-D tomosynthesis images were obtained and synthetic 2-D images were generated. Bilateral rotated lateral CC views. CAD analysis was submitted and interp reted. COMPARISON: No prior mammogram is available for comparison at this institution. BREAST PARENCHYMAL COMPOSITION: The breasts are heterogeneously dense, which may obscure small masses . FINDINGS: There are some radiating linear lines in both subareolar areas. Diagnostic bilateral mammog lola is recommended, with ultrasound if required. IMPRESSION: 1. Bilateral radiated linear lines in the subareolar areas 2. Bilateral diagnostic mammography is recommended, with ultrasound if required BI-RADS Category 0: Incomplete: Needs additional imaging evaluation. Reviewed, dictated and finalized at location A. CONDUCTOR PACKAGES PLATEMAKER
== END ==
PROVIDERS: PCP Physician Assistant; Visit Provider Obstetrics & Gynecology
DX: Z12.31 Encounter for screening mammogram for malignant neoplasm of breast (principal); R92.8 Other abnormal and inconclusive findings on diagnostic imaging of breast
CPT/HCPCS: 77063; 77067

== ENCOUNTER → 2023-01-19 08:01 | Outpatient (CLI) | payer OTHER, SELFPAY ==
--- NOTE | ~2023-01-19 | MM_ITS ---
EXAMINATION: MM diagnostic gerardo BI w neymar HISTORY: Subareolar asymmetries of the breasts on screening mammogram TECHNIQUE: Additional 3-D tomosynthesis images of the breasts were performed and synthetic 2-D images were generated. CAD analysis was submitted and interpreted. COMPARISON: 12/25/2022 FINDINGS: No suspicious mass, calcification, or architectural distortion are identified in either jaci ast to suggest malignancy. IMPRESSION: 1. No mammographic evidence of malignancy. 2. Recommend routine screening mammography in one year. BI-RADS Category 1: Negative Reviewed, dictated and finalized at location A. KET WEAVER
== END ==
PROVIDERS: PCP Physician Assistant; Visit Provider Obstetrics & Gynecology
DX: R92.8 Other abnormal and inconclusive findings on diagnostic imaging of breast (principal)
CPT/HCPCS: 77062; 77066; G0279

== ENCOUNTER 2023-01-20 13:03 | Outpatient (CLI) | payer OTHER, SELFPAY ==
--- NOTE | ~2023-01-20 | XR_ITS ---
EXAMINATION: XR barium swallow DATE: 01/20/2023 13:35 INDICATION: Intermittent dysphagia. Feels like pills get stuck. In throat. TECHNIQUE: The patient drank thick barium, gas-producing crystals, and thin barium. Fluoroscopic spot radiographs of the hypopharynx and esophagus were obtained. Fluoroscopy exposure time was minutes. COMPARISON: None. FINDINGS: The pharynx is symmetric and without evidence of mass lesion or mucosal irregularity. The e sophagus is normal without mass or stricture. Esophageal motility is normal. Small sliding-type hiata l hernia with gastroesophageal junction approximately 3-4 cm above level of the diaphragm. There was no gastroesophageal reflux with provocative maneuvers. IMPRESSION: 1. Small sliding-type hiatal hernia. Otherwise unremarkable esophagram. Reviewed, dictated and finalized at location A. DEVELOPER
--- NOTE | ~2023-01-20 | US_ITS ---
EXAMINATION: US thyroid DATE: 01/20/2023 13:53 INDICATION: Hypothyroidism. TECHNIQUE: Multiple ultrasound images of the thyroid were obtained. COMPARISON: None. FINDINGS: The right thyroid lobe measures 3.4 x 1.3 x 0.9 cm. The left thyroid lobe measures 3.4 x 1.2 x 1.4 c m. The thyroid is diffusely heterogeneous and hypoechoic. No discrete nodule. Vascularity is increas ed. IMPRESSION: 1. Heterogeneous, hypervascular thyroid, consistent with chronic lymphocytic (Iban) thyroiditis. Reviewed, dictated and finalized at location A. TIVE PROJECT MANAGER IMPRESSION: 1. Heterogeneous, hypervascular thyroid, consistent with chronic lymphocytic (H ashimoto) thyroiditis.
== END 2023-01-20 13:04 | disposition home or self-care (01) ==
LOC: ANHIMG 13:05
PROVIDERS: PCP Physician Assistant; Visit Provider Physician Assistant
DX: R13.19 Other dysphagia (principal); E03.9 Hypothyroidism, unspecified; K44.9 Diaphragmatic hernia without obstruction or gangrene
CPT/HCPCS: 74220; 76536

== ENCOUNTER 2023-04-14 01:16 | Day surgery (SDC) | payer OTHER, SELFPAY ==
[2023-03-24 12:40] VITALS: BMI 24.7
[2023-03-24 13:16] VITALS: BMI 24.7
--- NOTE | 2023-04-13 15:54 | PM.HPGS ---
History of Present Illness History of Present Illness Consent: Risks, benefits, and alternatives have been discussed and questions answered. Patient agrees to proceed with procedure. Chief complaint: dysphagia Narrative: Zoe Magallon is a 42 year old female with dysphagia . This occurs primarily with pills that seem to get hung up but she swallowing them. She denies frequent heartburn. She denies nausea vomiting. Review of Systems Review of Systems: All systems reviewed & are unremarkable except as noted in HPI and below PMFSH Past Medical History Medical History CVA (cerebral vascular accident) Hyperlipidemia Pulmonary embolism Rheumatoid arthritis Social History Social History Years smoked: 5 Smoking status: Smoker, status unknown Tobacco type: cigarettes Second hand tobacco smoke exposure: Yes (SOCIAL GATHERINGS) Smoking end date: 11/15/21 Additional smoking assessment comments: STATES SOCIAL SMOKER 1PK/MONTH/18YRS Alcohol intake: never Drinks per week: 5 Substance use: never Substance use type: does not use Living arrangements: with family Spiritual care concerns: No Meds Home Medications and Allergies Home Medications Medication Instructions Recorded Confirmed Type aspirin 81 mg tablet,delayed 81 mg PO QAM 12/02/21 03/24/23 History release atorvastatin 40 mg tablet (Lipitor) 40 mg PO HS 12/02/21 03/24/23 History hydroxychloroquine 200 mg tablet 200 mg PO DAILY 12/02/21 03/24/23 History (Plaquenil) levothyroxine 150 mcg capsule 150 mcg PO QAM 12/02/21 03/24/23 History (Tirosint) liothyronine 5 mcg tablet (Cytomel) 10 mcg PO BID 12/02/21 03/24/23 History phentermine 15 mg capsule 15 mg PO BID 12/02/21 03/24/23 History adalimumab 40 mg/0.4 mL 40 mg subcut DIRECTED 10/10/22 03/24/23 History subcutaneous pen kit (Humira(CF) Pen) folic acid 1 mg tablet 2 mg PO DAILY 10/10/22 03/24/23 History gabapentin 300 mg capsule 300 mg PO DIRECTED 10/10/22 03/24/23 History methotrexate (PF) 20 mg/0.4 mL 20 mg subcut WEEKLY 03/24/23 03/24/23 History subcutaneous auto-injector (Rasuvo (PF)) Allergies Allergy/AdvReac Type Severity Reaction Status Date / Time Sulfa (Sulfonamide AdvReac Intermediate Rash Verified 04/14/23 06:56 Antibiotics) Exam Const: General: alert Orientation/consciousness: patient oriented x3 Resp: Auscultation: clear to auscultation bilaterally Cardio: Rhythm: regular rhythm GI: GI Palp: Yes Soft to palpation and No Tenderness to palpation present (GI) Neuro: General: patient oriented x3 Assessment and Plan Assessment and plan (1) Dysphagia: Code(s): R13.10 - Dysphagia, unspecified Status: Acute Assessment and Plan: EGD with possible biopsy or dilatation or cautery.
[2023-04-14 06:58] VITALS: BP 125/93; PULSE 85; RESP 18; TEMP 36.1; O2SAT 99
[2023-04-14] MEDS: LACTATED RINGERS 1,000 ML 150 ML IV CONT (07:00)
--- NOTE | 2023-04-14 07:34 | WPDANESEPPF ---
Anes - Initial Pre Proc Eval Procedure: Operation Date: 04/14/23 08:15 Proposed Procedures p Esophagogastroduodenoscopy - Chadwick Jaime MD Date/Time: 04/14/23 07:34 Surgeon: Chadwick Jaime MD Pre Op Diagnosis: dysphagia Patient Data Age: 42 Gender: F Height: 1.68 m Weight: 70.6 kg Last Vital Signs Temp 96.9 F L 04/14/23 06:58 Pulse 85 04/14/23 06:58 Resp 18 04/14/23 06:58 BP 125/93 H 04/14/23 06:58 Pulse Ox 99 04/14/23 06:58 O2 Del Method Room Air 04/14/23 06:58 Allergies Allergy/AdvReac Type Severity Reaction Status Date / Time Sulfa (Sulfonamide AdvReac Intermediate Rash Verified 04/14/23 06:56 Antibiotics) Home Medications Medication Instructions Recorded Confirmed Type aspirin 81 mg tablet,delayed 81 mg PO QAM 12/02/21 03/24/23 History release atorvastatin 40 mg tablet (Lipitor) 40 mg PO HS 12/02/21 03/24/23 History hydroxychloroquine 200 mg tablet 200 mg PO DAILY 12/02/21 03/24/23 History (Plaquenil) levothyroxine 150 mcg capsule 150 mcg PO QAM 12/02/21 03/24/23 History (Tirosint) liothyronine 5 mcg tablet (Cytomel) 10 mcg PO BID 12/02/21 03/24/23 History phentermine 15 mg capsule 15 mg PO BID 12/02/21 03/24/23 History adalimumab 40 mg/0.4 mL 40 mg subcut DIRECTED 10/10/22 03/24/23 History subcutaneous pen kit (Humira(CF) Pen) folic acid 1 mg tablet 2 mg PO DAILY 10/10/22 03/24/23 History gabapentin 300 mg capsule 300 mg PO DIRECTED 10/10/22 03/24/23 History methotrexate (PF) 20 mg/0.4 mL 20 mg subcut WEEKLY 03/24/23 03/24/23 History subcutaneous auto-injector (Rasuvo (PF)) Patient hx anesthesia problems: none Family hx anesthesia problems: none Results Review: All pre-operative results and documents have been reviewed as part of the pre-operative evaluation. [facility] Past Medical History Medical History CVA (cerebral vascular accident) Hyperlipidemia Pulmonary embolism Rheumatoid arthritis Social History Social History Years smoked: 5 Smoking status: Smoker, status unknown Tobacco type: cigarettes Second hand tobacco smoke exposure: Yes (SOCIAL GATHERINGS) Smoking end date: 11/15/21 Additional smoking assessment comments: STATES SOCIAL SMOKER 1PK/MONTH/18YRS Alcohol intake: never Drinks per week: 5 Substance use: never Substance use type: does not use Living arrangements: with family Spiritual care concerns: No Anes - Eval Final PreProcedure Day of Procedure 04/14/23 07:34 Patient weight: normal Heart: regular rate and rhythm Lungs: clear to auscultation Airway: Mallampati scale class II Neurological: alert and oriented Last oral intake: >/= 8 hours ASA classification: III Emergent: no Anesthetic plan: proceed Anesthesia type and monitoring: general GIVS and standard monitoring Results Review: All pre-operative results and documents have been reviewed as part of the pre-operative evaluation. Informed Consent: The patient's anesthetic plan and its attendant risks and benefits were discussed with the patient/family/POA. Questions were solicited and answers provided to the satisfaction of the patient/family/POA.
[2023-04-14 08:20] VITALS: BP 116/78; PULSE 79; RESP 25; O2SAT 98
[2023-04-14 08:30] VITALS: BP 126/83; PULSE 78; RESP 26; O2SAT 100
[2023-04-14 08:40] VITALS: BP 123/91; PULSE 67; RESP 16; O2SAT 100
== END 2023-04-14 08:49 | disposition home or self-care (01) ==
PROVIDERS: PCP Physician Assistant; Visit Provider Internal Medicine Gastroenterology
PROC: 0DJ08ZZ Inspection of Upper Intestinal Tract, Via Natural or Artificial Opening Endoscopic (ICD-10-PCS; CPT 43235; principal; 2023-04-14 08:15)
DX: R13.12 Dysphagia, oropharyngeal phase (principal); K21.9 Gastro-esophageal reflux disease without esophagitis; K31.84 Gastroparesis; K29.50 Unspecified chronic gastritis without bleeding; M06.9 Rheumatoid arthritis, unspecified; E78.5 Hyperlipidemia, unspecified; Z86.73 Personal history of transient ischemic attack (TIA), and cerebral infarction without residual deficits; Z86.711 Personal history of pulmonary embolism; Z79.82 Long term (current) use of aspirin; Z79.620 Long term (current) use of immunosuppressive biologic; Z79.631 Long term (current) use of antimetabolite agent; Z72.0 Tobacco use
CPT/HCPCS: 43239; 88305; J2704; J7120

== ENCOUNTER 2024-08-15 13:17 | Outpatient (CLI) | payer OTHER, SELFPAY ==
--- NOTE | ~2024-08-15 | XR_ITS ---
XR shoulder LT min 2V 08/15/2024 13:42 INDICATION: Left shoulder pain PROCEDURE: 4 views left shoulder COMPARISON: No prior studies for comparison. FINDINGS: Fracture, dislocation or subluxation is not identified. The soft tissues appear within norm al limits. No foreign bodies are identified. IMPRESSION: 1: NO ACUTE BONE OR JOINT ABNORMALITY IDENTIFIED. Reviewed, dictated and finalized at location B.
== END 2024-08-15 13:18 | disposition home or self-care (01) ==
PROVIDERS: PCP Physician Assistant; Visit Provider Nurse Practitioner
DX: M25.512 Pain in left shoulder (principal)
CPT/HCPCS: 73030

== ENCOUNTER 2024-10-05 12:04 | Outpatient (CLI) | payer OTHER, SELFPAY ==
--- NOTE | ~2024-10-05 | XR_ITS ---
EXAMINATION: XR foot LT min 3V DATE: 10/05/2024 12:31 INDICATION: Left foot pain TECHNIQUE: Dorsoplantar, two oblique and lateral views of the left foot were obtained. COMPARISON: None. FINDINGS: Alignment is normal. No fracture. Minimal to mild osteoarthritis at the first metatarsophalangeal and multiple tarsometatarsal and interphalangeal joints. Small plantar calcaneal spur. Soft tissues are unremarkable. IMPRESSION: 1. Small plantar calcaneal spur and minimal to mild polyarticular osteoarthritis in the mid and foref oot. Reviewed, dictated and finalized at location B. LOPING MACHINE TENDER IMPRESSION: 1. Small plantar calcaneal spur and minimal to mild polyarticular osteoarthriti s in the mid and forefoot.
--- NOTE | ~2024-10-05 | XR_ITS ---
EXAMINATION: XR knee LT 3V DATE: 10/05/2024 12:31 INDICATION: Left knee pain TECHNIQUE: Standing AP, lateral and sunrise views of the left knee were obtained. COMPARISON: 01/16/2015 FINDINGS: Alignment is normal. No fracture. Joint spaces appear normal on all 3 compartments but with small ma rginal osteophytes at the medial and patellofemoral compartments consistent with mild osteoarthritis. In addition there appear to be small central subchondral osteophytes along the patellar apical ridge on the lateral projection suggesting high-grade chondromalacia. No joint effusion. Small loose osteo chondral body versus heterotopic ossicle along the cephalad margin of the patella. Soft tissues are u nremarkable. IMPRESSION: 1. 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 No knee joint effusion or acute osseous abnormality. Reviewed, dictated and finalized at location B. NESS OBJECTS ARCHITECT IMPRESSION: 1. Mild medial and patellofemoral osteoarthritis with small central subchondral osteophytes suggesting high-grade chondromalacia along the patellar apical rid ge. No knee joint effusion or acute osseous abnormality.
== END 2024-10-05 12:05 | disposition home or self-care (01) ==
LOC: MICIMG 12:11
PROVIDERS: PCP Physician Assistant; Visit Provider Nurse Practitioner
DX: M19.072 Primary osteoarthritis, left ankle and foot (principal); M77.32 Calcaneal spur, left foot; M25.762 Osteophyte, left knee
CPT/HCPCS: 73562; 73630

== ENCOUNTER 2024-10-19 13:56 | Outpatient (CLI) | payer OTHER, SELFPAY ==
--- NOTE | ~2024-10-19 | US_ITS ---
Mid and lower back subcutaneous ULTRASOUND Ordering provider: Ольга Chun, JONES History: . TUMOR OF SOFT TISSUE OF BACK . Comparison: None. FINDINGS/impression: Mid back: Right of midline shows Multiple slightly hypoechoic areas are noted measures 1.5 x 0.7 x 1.3 cm, 1.5x 0.7 x 2.6 cm and 1 x 0 .6 x 1.3 cm. These areas most likely represent lipomas. Follow-up advised. Lower back: Right of midline shows Multiple slightly hypoechoic areas are noted measures 1.5 x 0.9 x 1.7 cm, 04x 0.7 x 0.7 cm and the 0. 9 x 1.1 x 1,7 cm. These areas most likely represent lipomas. Follow-up advised. If clinically warrant ed.Further evaluation advised Reviewed, dictated and finalized at location A. SHOP MANAGER
--- NOTE | ~2024-10-19 | US_ITS ---
EXAMINATION: US soft tissue LE LT DATE: 10/19/2024 14:31 INDICATION: Swelling of left knee joint. TECHNIQUE: Multiple grayscale and Doppler ultrasound images of the left lower limb were obtained. COMPARISON: Left knee radiographs 10/05/2024 FINDINGS: There is a fluid collection in the soft tissues medial to the knee with 3.3 x 0.4 x 3.4 and 2.0 x 1.0 x 1.9 cm components. IMPRESSION: 1. Fluid collection in the soft tissues medial to the left knee, consistent with a ganglion cyst. Reviewed, dictated and finalized at location A. L VIAL GRINDER IMPRESSION: 1. Fluid collection in the soft tissues medial to the left knee, consistent wit h a ganglion cyst.
== END 2024-10-19 13:57 | disposition home or self-care (01) ==
LOC: MICIMG 13:56
PROVIDERS: PCP Orthopaedic Surgery; Visit Provider Physician Assistant
DX: D49.2 Neoplasm of unspecified behavior of bone, soft tissue, and skin (principal); M25.462 Effusion, left knee
CPT/HCPCS: 76705; 76882

== ENCOUNTER 2025-04-06 10:08 | Outpatient (CLI) | payer OTHER, SELFPAY ==
--- NOTE | ~2025-04-06 | MR_ITS ---
MRI of the cervical spine Clinical History: Cervicalgia, rheumatoid arthritis Technique: Axial T2-weighted and gradient images, and sagittal T1-weighted, T2-weighted, and STIR juanita ges were acquired. Findings: No fracture or subluxation seen in the cervical spine. Vertebral bodies maintain normal hei ght and alignment. No bone marrow signal abnormality seen. At C2-C3, there is no disc bulge or herniation. No spinal canal stenosis, cord compression, or neural foraminal narrowing. At C3-C4, there is no significant disc bulge or herniation. No spinal canal stenosis, cord compressio n, or neural foraminal narrowing. At C4-C5, there is mild disc osteophyte complex which minimally flattens the ventral cord. Possible m inimal right neural foraminal narrowing. Left neural foramen preserved. At C5-C6, there is disc osteophyte complex with mild canal stenosis and mild ventral cord flattening/ compression. There is mild bilateral neural foraminal narrowing, left worse than right. At C6-C7, there is minimal disc bulge. No spinal canal stenosis, cord compression, or neural foramina l narrowing. No abnormal signal seen in the spinal cord. Paravertebral soft tissues are unremarkable. Impression: Moderate degenerative spondylosis, particularly at C4-C5 and C5-C6, as detailed above. Reviewed, dictated and finalized at location M. Impression: Moderate degenerative spondylosis, particularly at C4-C5 and C5-C6, as detailed above.
--- NOTE | ~2025-04-06 | MR_ITS ---
MRI of the lumbar spine Clinical History: Back pain, rheumatoid arthritis Technique: Axial T2-weighted images, and sagittal T1-weighted, T2-weighted, and T2 fat-sat images wer e acquired. Findings: There is no acute fracture or subluxation of lumbar spine. Vertebral bodies maintain normal height and alignment. No bone marrow signal abnormality seen. At L1-L2, L2-L3, L3-L4, L4-L5, there is no significant disc bulge or herniation. There are mild facet joint degenerative changes at these levels. No spinal canal stenosis or neural foraminal narrowing a t these levels. At L5-S1, there is disc desiccation with minimal disc bulge and tiny annular fissure. There is modera te facet arthropathy. No central canal stenosis or neural foraminal narrowing. Paravertebral soft tissues are unremarkable. Impression: Degenerative disc changes at L5-S1, as detailed above. No spinal canal stenosis or neural foraminal n arrowing in the lumbar spine. Reviewed, dictated and finalized at location . Impression: Degenerative disc changes at L5-S1, as detailed above. No spinal canal stenosis or neural foraminal narrowing in the lumbar spine.
== END 2025-04-06 10:09 | disposition home or self-care (01) ==
PROVIDERS: PCP Physical Medicine & Rehabilitation; Visit Provider Physical Medicine & Rehabilitation
DX: M51.379 Other intervertebral disc degeneration, lumbosacral region without mention of lumbar back pain or lower extremity pain (principal); M50.321 Other cervical disc degeneration at C4-C5 level; M50.322 Other cervical disc degeneration at C5-C6 level; M06.9 Rheumatoid arthritis, unspecified
CPT/HCPCS: 72141; 72148

== ENCOUNTER 2025-09-07 12:04 | Emergency (ER) | payer OTHER, SELFPAY ==
[2025-09-07 12:20] VITALS: BP 119/84; PULSE 94; RESP 16; TEMP 36.8; O2SAT 98
--- NOTE | 2025-09-07 13:45 | ED.GENADULT ---
HPI - General Adult General Chief complaint: Ear Stated complaint: EAR CLOGGED/DIZZY Source: patient Mode of arrival: ambulatory Limitations: no limitations History of Present Illness HPI narrative: Pt presents for evaluation of left ear discomfort. She states that she initially experienced a sore throat two days ago. She then developed sinus congestion, the sensation that her left ear was clogged and dizziness. She denies any fever, chills, nausea, vomiting or diarrhea. Her daughter is being evaluated here for sick symptoms. Pt does smoke cigarettes occasionally when drinking alcohol. She has taken sudafed and generic zyrtec for her symptoms. Related Data Home Medications ?Medication ?Instructions ?Recorded ?Confirmed ?Last Taken ?Type liothyronine 5 mcg tablet (Cytomel) 10 mcg PO BID 12/02/21 09/07/25 04/13/23 History levothyroxine 150 mcg tablet 150 mcg PO DAILY 12/07/24 09/07/25 Unknown History (Unithroid) rosuvastatin 10 mg tablet 10 mg PO DAILY 12/07/24 09/07/25 Unknown History Tyenne Autoinjector 09/07/25 Unknown History aspirin 09/07/25 Unknown History Allergies Allergy/AdvReac Type Severity Reaction Status Date / Time Sulfa (Sulfonamide AdvReac Intermediate Rash Verified 09/07/25 12:32 Antibiotics) Review of Systems Review of Systems: CONSTITUTIONAL: Denies fever, chills, or sweats. EYES: Denies visual changes, redness, or discharge. ENT: Reports sinus congestion, sensation that her left ear is clogged and left sided ear discomfort. She reports recent sore throat, none currently CARDIOVASCULAR: Denies chest pain, palpitations, or edema. RESPIRATORY: Denies cough or dyspnea. GASTROINTESTINAL: Denies abdominal pain, nausea, vomiting, or diarrhea. GENITOURINARY: Denies dysuria or hematuria. SKIN: Denies rash or itching. MUSCULOSKELETAL: Denies back pain, joint pain, or myalgia. NEUROLOGIC: Reports dizziness. Denies headache, numbness, or weakness. PSYCHIATRIC: Denies anxiety or depression. [facility] Past Medical History Medical History (Reviewed 09/07/25 @ 13:51 by Joby Chaudhary, PHARMACIST HELPER, RESIDENTIAL SALES EXECUTIVE) Iban's disease Rheumatoid arthritis Pulmonary embolism Hyperlipidemia CVA (cerebral vascular accident) Surgical History Surgical History History of bladder surgery History of partial hysterectomy Family History Family History Mother Alcohol abuse Breast cancer Social History Social History Years smoked: 5 Smoking status: Current some day smoker Tobacco type: cigarettes Second hand tobacco smoke exposure: Yes (SOCIAL GATHERINGS) Smoking end date: 11/15/21 Additional smoking assessment comments: STATES SOCIAL SMOKER 1PK/MONTH/18YRS Alcohol intake: never Drinks per week: 5 Substance use: never Substance use type: does not use Current Housing: Decline to Answer Concerned About Future Housing: Decline to Answer Difficulty Paying Gas/Electric Bills: Decline to Answer Difficulty Paying for Meds: Decline to Answer Currently Unemployed: Decline to Answer Education: Decline to Answer Difficulty w/ Childcare or Family Care: Decline to Answer Living arrangements: with family Spiritual care concerns: No Exam Narrative: GENERAL: Well-appearing, well-nourished, and in no acute distress. HEAD: Normocephalic, atraumatic. EYES: PERRLA and EOMI. ENT: Nares clear, no rhinorrhea or epistaxis. Mucous membranes moist. Oropharynx without tonsillar hypertrophy exudate or other lesions. Bilateral TMs are erythematous NECK: Supple. No adenopathy or masses. No carotid bruits or JVD CHEST: Clear to auscultation. No respiratory distress. No wheezes rales or rhonchi HEART: Regular rate and rhythm. No murmur heard. Normal peripheral pulses. ABDOMEN: Soft, nontender, nondistended, normal active bowel sounds. EXTREMITIES: Normal range of motion. No edema. SKIN: Warm, dry, no rash. NEURO: No focal deficits. Alert and oriented x3. PSYCH: Normal mood and affect. Course Course Emergency Course: This is a 44 year old female who presented for evaluation of sick symptoms. She has evidence of otitis media on exam. Will tx with augmentin. Increase fluid intake. Loiq-ooz-alnzhos agents for symptom management. Follow up with primary provider. Go to the ER for worsening symptoms. Patient in agreement with plan of care. Level of Care: Express Care Visit Vital Signs Vital signs: Vital Signs Temperature 36.8 C 09/07/25 12:20 Pulse Rate 94 09/07/25 12:20 Respiratory Rate 16 09/07/25 12:20 Blood Pressure 119/84 09/07/25 12:20 Pulse Oximetry 98 09/07/25 12:20 Temperature 36.8 C 09/07/25 12:20 Pulse Rate 94 09/07/25 12:20 Respiratory Rate 16 09/07/25 12:20 Blood Pressure 119/84 09/07/25 12:20 Pulse Oximetry 98 09/07/25 12:20 Medical Decision Making Vital Signs Vital Signs: Vital Signs Temperature 36.8 C 09/07/25 12:20 Pulse Rate 94 09/07/25 12:20 Respiratory Rate 16 09/07/25 12:20 Blood Pressure 119/84 09/07/25 12:20 Pulse Oximetry 98 09/07/25 12:20 Temperature 36.8 C 09/07/25 12:20 Pulse Rate 94 09/07/25 12:20 Respiratory Rate 16 09/07/25 12:20 Blood Pressure 119/84 09/07/25 12:20 Pulse Oximetry 98 09/07/25 12:20 Discharge Plan Discharge Clinical Impression: Otitis media Qualifiers: Otitis media type: suppurative Chronicity: acute Laterality: bilateral Recurrence: non-recurrent Spontaneous tympanic membrane rupture: without spontaneous rupture Qualified Code(s): H66.003 - Acute suppurative otitis media without spontaneous rupture of ear drum, bilateral Patient Disposition: Home Condition: Stable Instructions: Antibiotic Form, Ear Infection (ED) Patient Language: Slovak Prescriptions: New amoxicillin-pot clavulanate 875-125 mg tablet 1 tablet PO Q12H Qty: 20 0RF No Action Tyenne Autoinjector aspirin levothyroxine [Unithroid] 150 mcg tablet 150 mcg PO DAILY rosuvastatin 10 mg tablet 10 mg PO DAILY liothyronine [Cytomel] 5 mcg Tablet 10 mcg PO BID Follow-up/Referrals: Lay,JONES Rolon [Primary Care Provider, Unknown] Time of Disposition: 13:40
== END 2025-09-07 13:50 | disposition home or self-care (01) ==
PROVIDERS: Emergency Provider Nurse Practitioner; PCP Physician Assistant
DX: H66.003 Acute suppurative otitis media without spontaneous rupture of ear drum, bilateral (principal); E06.3 Autoimmune thyroiditis; R06.9 Unspecified abnormalities of breathing; E78.5 Hyperlipidemia, unspecified; Z72.0 Tobacco use; Z86.711 Personal history of pulmonary embolism; Z86.73 Personal history of transient ischemic attack (TIA), and cerebral infarction without residual deficits; Z90.711 Acquired absence of uterus with remaining cervical stump
CPT/HCPCS: 99213; G0463

== ENCOUNTER 2025-09-11 08:39 | Outpatient (CLI) | payer OTHER, SELFPAY ==
--- OUTSIDE RECORDS SUMMARY | 2025-04-17 10:10 | XMS_ITS ---
Author Organization [facility] Address [address] [place], [place] [id number] Care Team Providers Care Edge Banding Machine Offbearer Name Role Phone Leslie Ku Unavailable [phone] Allergies Allergen (clinical drug ingredient) Drug/Non Drug Allergy documented on EMR Reaction Allergy Type Onset Date Status Substance with sulfonamide structure and antibacterial mechanism of action (substance) Sulfa Antibiotics nausea Drug Allergy Active Medications Medication SIG (Take, Route, Frequency, Duration) Notes Start Date End Date Status Methotrexate Sodium Not-Taking [facility] Aspirin Adult Low Dose 81 MG 1 tablet Orally Once a day Active Semaglutide-Weight Management 0.25 MG/0.5ML 0.5 mL Subcutaneous Active Actemra ACTPen 162 MG/0.9ML Inject 1 pen (162 mg) Subcutaneous once a week; Duration: 84 days 04/17/2025 07/10/2025 Active sulfaSALAzine 500 MG 1 tablet Orally Onc e a day Active Phentermine HCl 37.5 MG 1 capsule Orally Once a day Active predniSONE 5 MG 1 tablet with food o r milk Orally Once a day Active Testosterone 75 MG as directed Implant Active Gabapentin 300 MG 1 capsule Orally Onc e a day Active Magnesium 100 MG 2 tablets with meals Orally Twice a day Active Cyclobenzaprine HCl 5 MG 1 tablet at bed time as needed Orally Once a day Active Unithroid 150 MCG 1 tablet in the morning on an empty stomach Orally Once a day Active Rosuvastatin Calcium 10 MG 1 tablet Orally Once a day Active Liothyronine Sodium 5 MCG 1 tablet on an empty stomach Orally Once a day Active Cholecalciferol Acti ve Multivitamin - 1 tablet Orally Once a day Active [place]-3 Fatty Acids 880 MG 1 capsule Orally Three times a day Active Social History Tobacco Use: Social History Observation Description Date Details (start date - stop date) Former Smoker NA - NA Sex Assigned At : Social History Observation Description Sex Assigned At Female Tobacco Control (Standard) Question Answer Notes Tobacco use: Former smoker Problems Problem Type SNOMED Code ICD Code Onset Dates Problem Status W/U Status Risk Notes Problem Rheumatoid arthritis (07589707) Rheumatoid arthritis, involving unspecified site, unspecified whether rheumatoid factor present (M06.9) Active confirmed Problem Rheumatoid arthritis (64301349) Rheumatoid arthritis (M06.9) Active confirmed Problem Hypothyroidism (55574332) Hypothyroidism (E03.9) Active confirmed Problem Stroke (192338936) Stroke (I63.9) Active confirmed Problem Chronic fatigue syndrome (78455190) Chronic fatigue syndrome (R53.82) Active confirmed Vital Signs Height 66 in 04/17/2025 Weight 147 lbs 04/17/2025 BMI 23.72 kg/m2 04/17/2025 Height-cm 167.64 cm 04/17/2025 Weight-kg 66.68 kg 04/17/2025 Encounters Encounter Location Date Provider Diagnosis [address] [place], [place] [id number] 04/17/2025 Leslie Bryanoa Rheumatoid arthritis, involving unspecified site, unspecified whether rheumatoid factor present M06.9 ; Other custodial (current) drug therapy Z79.899 and Routine health maintenance Z00.00 Assessments Encounter Date Diagnosis (ICD Code) Assessment Notes Treatment Notes Treatment Clinical Notes Section Notes 04/17/2025 Rheumatoid arthritis, involving unspecified site, unspecified whether rheumatoid factor present (ICD-10 - M06.9) Ms. Magallon is a 44 year-old female with rheumatoid arthritis, currently managed by Yumi Go NP. At this time, patient will continue Actemra at an increased frequency of weekly dosing for better symptom control. 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 SCREENING: (03/09/2025) CDAI: 15 LABS: QuantiFERON-TB Gold (03/09/2025): Negative Hepatitis B Surface Antigen (03/09/2025): NR Counseled that rheumatoid arthritis is chronic in nature with periods of remission and flares. Flares can be triggered by stress, and infections. Do NOT drink alcohol with this medication due to serious interactions. Counseled that patients on Actemra are at increased risk for developing serious infections that may lead to hospitalization or , including tuberculosis, bacterial, invasive fungal, viral, or other opportunistic infections. Instructed to call the office with any concerns or infections. 04/17/2025 Other house piping inspector (current) drug therapy (ICD-10 - Z79.899) When on high-risk medications, patient must be vigilant about any new symptoms and understand the risks and side effects of their treatment. Biologic/small molecule medications can have significant side effects that may require blood test monitoring on a regular basis. Patient to contact providers for fever, chills, night sweats, malaise, abdominal pain, weakness, fatigue, headaches, infections, difficulty breathing or persistent cough, new skin lesions, or other unusual symptoms. 04/17/2025 Routine health maintenance (ICD-10 - Z00.00) https://www.cdc.gov /vaccines/schedules /downloads/adult/ad wcn-avgpkned-ucyheg le.pdf Plan Of Treatment Medication Medication Name Sig Start Date Stop Date Notes Actemra ACTPen 162 MG/0.9ML Inject 1 pen (162 mg) Subcutaneous once a week; Duration: 84 days 04/17/2025 07/10/2025 Actemra ACTPen 162 MG/0.9ML Inject 162mg /0.9ml Subcutaneous every 2 weeks Treatment Notes Assessment Notes Rheumatoid arthritis, involv ing unspecified site, unspecified whether rheumatoid factor present Ms. Magallon is a 44 year-old female with rheumatoid arthritis, currently managed by Yumi Go NP. At this time, patient will continue Actemra at an increased frequency of weekly dosing for better symptom control. 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 SCREENING: (03/09/2025) CDAI: 15 LABS: QuantiFERON-TB Gold (03/09/2025): Negative Hepatitis B Surface Antigen (03/09/2025): NR Counseled that rheumatoid arthritis is chronic in nature with periods of remission and flares. Flares can be triggered by stress, and infections. Do NOT drink alcohol with this medication due to serious interactions. Counseled that patients on Actemra are at increased risk for developing serious infections that may lead to hospitalization or , including tuberculosis, bacterial, invasive fungal, viral, or other opportunistic infections. Instructed to call the office with any concerns or infections. Other custodial (current) drug therapy W hen on high-risk medications, patient must be vigilant about any new symptoms and understand the risks and side effects of their treatment. Biologic/small molecule medications can have significant side effects that may require blood test monitoring on a regular basis. Patient to contact providers for fever, chills, night sweats, malaise, abdominal pain, weakness, fatigue, headaches, infections, difficulty breathing or persistent cough, new skin lesions, or other unusual symptoms. Routine health maintenance https://www.c dc.gov/vaccines/schedules/downl oads/adult/ddcaa-rqescuxm-zmzcazol.pdf Progress Notes * Zoe MAGALLONDOB:1980 (44 yo F)Acc No.[id number]:04/17/2025 Patient: Zoe ALTMAN Provider: Milvia Ku :1980 A ge:44 Y S ex:Female Date:04/17/2025 Address:[address] [place] [address] Subjective: * Chief Complaints: * * HPI: T elemedicine: Ms. Magallon is a 44 year-old female with rheumatoid arthritis, currently managed by Yumi Go NP. Patient's past medical history is notable for synovitis in both knees, p ositive antinuclear antibody, thyroid antibody positive, pulmonary embolism, hypothyroidism, stroke syndrome, and chronic fatigue syndrome, Family history notable for Rheumatologic disorders. T he patient has been on treatment with Actemra biweekly dosing since November of 2024 and reports mild improvement in her symptoms. She reports continued j oint pain, swelling, and stiffness specifically in her Hands, knees, left great toe, 2 small toes on right foot, back, neck, and shoulders. Previously, the patient has tried and failed C yclobenzaprine (morning tiredness), Naltrexone (ineffective and expensive), Hydrochloquine, Arava, Orencia, Humira, Simponi Aria, Enbrel, methotrexate (adverse effects), Mobic, a nd Diclofenac. She continues on adjunct therapy with SSZ and prednisone. The patient does occasionally take OTC meds, including Tylenol and ibuprofen. Patient denies any H ospitalizations, ER or urgent care visits within the last 6 months. Patient was called to verify their medical status and their prescription status. At this time, there are no changes to our prescription plans. [facility] is assisting as a specialty team in monitoring their health in consult with the patient's benefits consultant. Biologic/small molecule agents affect human immunology can put patients at risk for various infections and malignancies. Proper monitoring with lab tests and an updated vaccination profile can minimize these risks. A [facility] hospice team lead will be available to the patient for medication management. * Medical History: R heumatoid arthritis, Other infective (teno)synovitis, unspecified knee, Antinuclear antibody (JACKI) positive, Thyroid antibody positive, Pulmonary embolism, Hypothyroidism, Stroke, Chronic fatigue syndrome. * Hospitalization/Major Diagno stic Procedure: D enies Past Hospitalization. * Family History: F ather: arthritis. * Social History: T obacco Use: T obacco Control (Standard) T obacco use: F ormer smoker * Medications: T aking Multivitamin - Tablet 1 tablet Orally Once a day , Taking Cholecalciferol , Taking [place]-3 Fatty Acids 880 MG Capsule 1 capsule Orally Three times a day , Taking Unithroid 150 MCG Tablet 1 tablet in the morning on an empty stomach Orally Once a day , Taking Liothyronine Sodium 5 MCG Tablet 1 tablet on an empty stomach Orally Once a day , Taking Rosuvastatin Calcium 10 MG Tablet 1 tablet Orally Once a day , Taking Magnesium 100 MG Tablet 2 tablets with meals Orally Twice a day , Taking Cyclobenzaprine HCl 5 MG Tablet 1 tablet at bedtime as needed Orally Once a day , Taking Phentermine HCl 37.5 MG Capsule 1 capsule Orally Once a day , Taking Testosterone 75 MG Pellet as directed Implant , Taking predniSONE 5 MG Tablet 1 tablet with food or milk Orally Once a day , Taking Gabapentin 300 MG Capsule 1 capsule Orally Once a day , Taking [facility] Aspirin Adult Low Dose 81 MG Tablet Chewable 1 tablet Orally Once a day , Taking Semaglutide-Weight Management 0.25 MG/0.5ML Solution Auto-injector 0.5 mL Subcutaneous , Taking Actemra ACTPen 162 MG/0.9ML Solution Auto-injector Inject 162mg/0.9ml Subcutaneous every 2 weeks , Taking sulfaSALAzine 500 MG Tablet 1 tablet Orally Once a day , Not-Taking Methotrexate Sodium , Medication List reviewed and reconciled with the patient * Allergies: S ulfa Antibiotics: nausea - Criticality Low. Objective: * Vitals: W t:147lbs, Wt-k.68 kg, Ht:66in, Ht-cm: 167.64 cm, BMI:23.72Index, Body Surface Area: 1.76. Assessment: * Assessment: 1. R heumatoid arthritis, involving unspecified site, unspecified whether rheumatoid factor present - M06.9 2 . O ther custodial (current) drug therapy - Z79.899 ?3. [facility] health maintenance - Z00.00 Plan: * Treatment: 2. O ther custodial (current) drug therapy Notes:When on high-risk medications, patient must be vigilant about any new symptoms and understand the risks and side effects of their treatment. Biologic/small molecule medications can have significant side effects that may require blood test monitoring on a regular basis. Patient to contact providers for fever, chills, night sweats, malaise, abdominal pain, weakness, fatigue, headaches, infections, difficulty breathing or persistent cough, new skin lesions, or other unusual symptoms. 3. R [facility] health maintenance Notes:https://www.cdc.gov/vaccines/sched ules/downloads/adult/qibkb-oudelvwp-rxfto ule.pdf * Billing Information: * Visit Code: * Procedure Codes: Care Plan Details* * Electronic signature of Reilly Lawson , WEI-MINA on 09/11/2025 at 01:58 PM [facility] Sign off status: Pending * Provider: Milvia Ku Date: 0 04/17/2025 Generated for Christian Schilling/Amisha on: 1 01:58 PM [facility] History and Physical Notes * HPI (History of Present Illness) Category Sub-Category Detail Notes Category Not es Telemedicine Ms. Magallon is a 44 year-old female with rheumatoid arthritis, currently managed by Yumi Go NP. Patient's past medical history is notable for synovitis in both knees, positive antinuclear antibody, thyroid antibody positive, pulmonary embolism, hypothyroidism, stroke syndrome, and chronic fatigue syndrome, Family history notable for Rheumatologic disorders. The patient has been on treatment with Actemra biweekly dosing since November of 2024 and reports mild improvement in her symptoms. She reports continued joint pain, swelling, and stiffness specifically in her Hands, knees, left great toe, 2 small toes on right foot, back, neck, and shoulders. Previously, the patient has tried and failed Cyclobenzaprine (morning tiredness), Naltrexone (ineffective and expensive), Hydrochloquine, Arava, Orencia, Humira, Simponi Aria, Enbrel, methotrexate (adverse effects), Mobic, and Diclofenac. She continues on adjunct therapy with SSZ and prednisone. The patient does occasionally take OTC meds, including Tylenol and ibuprofen. Patient denies any Hospitalizations, ER or urgent care visits within the last 6 months. Patient was called to verify their medical status and their prescription status. At this time, there are no changes to our prescription plans. [facility] is assisting as a specialty team in monitoring their health in consult with the patient's benefits consultant. Biologic/small molecule agents affect human immunology can put patients at risk for various infections and malignancies. Proper monitoring with lab tests and an updated vaccination profile can minimize these risks. A [facility] hospice team lead will be available to the patient for medication management.
--- NOTE | ~2025-09-11 | MMUS_ITS ---
EXAMINATION: US breast BI complete, MM diagnostic gerardo BI w neymar HISTORY: Bloody nipple discharge TECHNIQUE: Additional 3-D tomosynthesis images of the breasts were performed and synthetic 2-D images were generated. CAD analysis was submitted and interpreted. High resolution bilateral complete breast ultrasound was performed. COMPARISON: None Comparison to multiple prior studies sequentially, with oldest reviewed study dated 12/25/2022. BREAST PARENCHYMAL COMPOSITION: Dense: The breasts are heterogeneously dense, which may obscure small masses FINDINGS: MAMMOGRAPHIC FINDINGS: There are no suspicious masses, calcifications or architectural distortion in either breast to suggest malignancy. ULTRASOUND: Complete US of all 4 quadrants of the breast/s and retroareolar region was reviewed. Normal heterogeneous echotexture in both breasts without Suspicious mass. No sonographic evidence for malignancy. IMPRESSION: 1. No evidence for malignancy in either breast. 2. Routine yearly screening mammogram and regular clinical breast examination are recommended. Consider correlation with MRI of the breast for further assessment of bloody nipple discharge. BI-RADS Category 1: Negative Reviewed, dictated and finalized at location B. IMPRESSION: 1. No evidence for malignancy in either breast. 2. Routine yearly screening mammogram and regular clinical breast examination a re recommended. Consider correlation with MRI of the breast for further assessm ent of bloody nipple discharge. BI-RADS Category 1: Negative
--- OUTSIDE RECORDS SUMMARY | 2025-09-11 08:58 | XMS_ITS | Patient Health Record ---
Author Organization [address] Address [address] [place], [place] [id number] Care Team Providers Care Automotive Design Drafter Name Role Phone Leslie Ku Unavailable [phone] Allergies Allergen (clinical drug ingredient) Drug/Non Drug Allergy documented on EMR Reaction Allergy Type Onset Date Status Substance with sulfonamide structure and antibacterial mechanism of action (substance) Sulfa Antibiotics nausea Drug Allergy Active Reason For Referral No Information Medications Medication SIG (Take, Route, Frequency, Duration) Notes Start Date End Date Status Magnesium 100 MG 2 tablets with meals Orally Twice a day Active Methotrexate Sodium Not-Taking Phentermine HCl 37.5 MG 1 capsule Orally Once a day Active Tyenne 162 MG/0.9ML Inject 0.9ml (162mg) under the skin once a week, rotating injection sites; Duration: 84 days [facility]/SH 05/25/2025 01/28/2026 Active Cyclobenzaprine HCl 5 MG 1 tablet at bedtime as needed Orally Once a day Active predniSONE 5 MG 1 tablet with food or milk Orally Once a day Active Testosterone 75 MG as directed Implant Active Cholecalciferol Acti ve [facility] Aspirin Adult Low Dose 81 MG 1 tablet Orally Once a day Active Multivitamin - 1 tablet Orally Once a day Active Gabapentin 300 MG 1 capsule Orally Once a day Active Unithroid 150 MCG 1 tablet in the morning on an empty stomach Orally Once a day Active Vian-3 Fatty Acids 880 MG 1 capsule Orally Three times a day Active Semaglutide-Weight Management 0.25 MG/0.5ML 0.5 mL Subcutaneous Active Rosuvastatin Calcium 10 MG 1 tablet Orally Once a day Active Liothyronine Sodium 5 MCG 1 tablet on an empty stomach Orally Once a day Active sulfaSALAzine 500 MG 1 tablet Orally Once a day Active Social History Tobacco Use: Social History Observation Description Date Details (start date - stop date) Former Smoker NA - NA Sex Assigned At : Social History Observation Description Sex Assigned At Female Tobacco Control (Standard) Question Answer Notes Tobacco use: Former smoker Problems Problem Type SNOMED Code ICD Code Onset Dates Problem Status W/U Status Risk Notes Problem Rheumatoid arthritis (60611446) Rheumatoid arthritis, involving unspecified site, unspecified whether rheumatoid factor present (M06.9) Active confirmed Problem Stroke (705952442) Stroke (I63.9) Active confirmed Problem Chronic fatigue syndrome (26182369) Chronic fatigue syndrome (R53.82) Active confirmed Problem Hypothyroidism (09828239) Hypothyroidism (E03.9) Active confirmed Problem Rheumatoid arthritis (82584988) Rheumatoid arthritis (M06.9) Active confirmed Vital Signs Height-cm 167.64 cm 04/17/2025 Weight-kg 66.68 kg 04/17/2025 Height 66 in 04/17/2025 Weight 147 lbs 04/17/2025 BMI 23.72 kg/m2 04/17/2025 Encounters Encounter Location Date Provider Diagnosis [address] [facility] [place], [place] [id number] 04/17/2025 Leslie Espurvoa Rheumatoid arthritis, involving unspecified site, unspecified whether rheumatoid factor present M06.9 ; Other manager programming (current) drug therapy Z79.899 and Routine health maintenance Z00.00 [address] [facility] [place], [place] [id number] 08/13/2025 Leslie Espurvoa Rheumatoid arthritis, involving unspecified site, unspecified whether rheumatoid factor present M06.9 [address] [facility] [place], [place] [id number] 05/25/2025 Leslie Espurvoa Rheumatoid arthritis, involving unspecified site, unspecified whether rheumatoid factor present M06.9 Assessments Encounter Date Diagnosis (ICD Code) Assessment [...] better symptom control. Patient will be monitored fdc for symptom control and side effects. SCREENING: [...] the office with any concerns or infections. 05/25/2025 Rheumatoid arthritis, involving unspecified site, unspecified whether rheumatoid factor present (ICD-10 - M06.9) 08/13/2025 Rheumatoid arthritis, involving unspecified site, unspecified whether rheumatoid factor present (ICD-10 - M06.9) 04/17/2025 Other fdc (current) drug therapy (ICD-10 - Z79.899) When [...] maintenance (ICD-10 - Z00.00) https://www.cdc.gov /vaccines/schedules /downloads/adult/ad sus-yxelvsas-ioywgh le.pdf Plan Of Treatment No Information Medical (General) History Medical History History ICD Code Rheumatoid arthritis M06.9 Other infective (teno)synovitis, unspeci fied knee M65.169 Antinuclear antibody (JACKI) positive R76. 8 Thyroid antibody positive R76.0 Pulmonary embolism I26.99 Hypothyroidism E03.9 Stroke I63.9 Chronic fatigue syndrome R53.82
--- OUTSIDE RECORDS SUMMARY | 2025-09-11 08:58 | XMS_ITS | Encounter Summary ---
Author Organization [facility] Address [address] [place] [address] Care Team Providers Care Restaurant Server Name Role Phone Will Bah MD Primary Care Provider [phone] Encounter Details Date Type Department Care Team (Late st Contact Info) Description 08/02/2024 Lab Requisition [facility] - DermPath Lab [address] [place] [id number] Tori Baptiste MD [address] [facility] [address] [place] [address] Social History Tobacco Use Types Packs/Day Years Used Date Smoking Tobacco: Some Days Smokeless Tobacco: Never Comments Unknown Sex and Gender Information Value Date Recorded Sex Assigned at Not on file Legal Sex Female 11:30 AM CDT Gender Identity Not on file Sexual Orientation Not on file documented as of this encounter Plan of Treatment Not on file documented as of this encounter Procedures Procedure Name Priority Date/Time Associated Diagnosis Comments DERMATOPATHOLOGY Routine 08/02/2024 9:30 AM CDT documented in this encounter Results * DERMATOPATHOLOGY (08/02/2024 9:30 AM CDT) Case Report Dermatopathology Report Case: [id number] Authorizing Provider: Tori Baptiste MD Collected: 08/02/2024 09:30 AM Ordering Location: [facility] - Received: 08/03/2024 07:16 AM DermPath Lab Pathologist: Jaye Brar MD Specimen: Skin, left posterior leg 11:33 AM CDT DERMATOPATHOLOGY LABORATORY Final Diagnosis Specimen A. SKIN, left posterior leg: DERMATOFIBROMA (D23.9) 11:33 AM CDT DERMATOPATHOLOGY LABORATORY at 1133 CDT Clinical History Nevus r/o MM brown papule irregular color 11:33 AM CDT DERMATOPATHOLOGY LABORATORY Gross Description Specimen A: Received is one formalin filled container labeled with the patient's name and designated left posterior leg. The specimen consists of a shave biopsy measuring 6x5x1 mm. Jar 0. 11:33 AM CDT DERMATOPATHOLOGY LABORATORY Microscopic Description Specimen A. SKIN, left posterior leg: There is epidermal hyperplasia. Within the dermis, there are fibrohistiocytic cells in haphazard array among coarse collagen bundles. 11:33 AM T DERMATOPATHOLOGY LABORATORY Disclaimer An external and internal positive and negative controls are appropriate for the histochemical, immunohistochemical and immunofluorescence stain(s) in this case (if any), except where stated explicitly. The performance characteristics of the stain(s) cited in this report were developed and its performance characteristic determined by the Dermatopathology Laboratory at [facility], directed by Dr. Carl Barragan. These tests need not be, and therefore are not, approved by the [place] Food and Drug Administration. The tests are used for clinical purposes. Billing Codes Specimen Charges Stain Charges 96924 1 11:33 AM CDT DERMATOPATHOLOGY LABORATORY Embedded Images 11:33 AM CDT DERMATOPATHOLOGY LABORATORY Pathology/Cytolo gy TISSUE SPECIMEN FROM SKIN / Unknown 08/02/2024 9:30 AM CDT 08/03/2024 7:16 AM CDT us Tori Baptiste MD LAB - PATHOLOGY/CYTOLOGY ORD ERABLES Final Result DERMATOPATHOLOGY LABORATORY [facility] - Department of Dermatology [address], [address] [phone] documented in this encounter Visit Diagnoses Not on filedocumented in this encounter Care Teams Restaurant Server Relationship Specialty Start Date End Date Will Bah MD PCP - General 07/08/20 documented as of this encounter
--- OUTSIDE RECORDS SUMMARY | 2025-09-11 08:58 | XMS_ITS | Clinical Summary ---
Author Organization [place] [id number] Address [address] [place] [id number] Phone Care Team Providers Care Lodge Attendant Name Role Phone Flako Chundavid [place] Primary Care Pr ovider Edwin NAVA MD, John J. Unavailable [phone] Leah Diaz NP Unavailable Harshad Durham MD Unavailable [phone] Allergies Active Allergy Reactions Criticality Noted Date Comments Gatifloxacin Vomiting Low 05/09/2005 Sulfa (Sulfonamide Antibiotics) Rash,Vomiting Medium 1 12/14/2020 Medications phentermine 15 mg capsuleIndicati ons:Fatigue Take 1 capsule (15 mg total) by mouth 2 (two) times a day as needed Active liothyronine (CYTOMEL) 5 mcg tablet Take 1 tablet (5 mcg total) by mouth 2 (two) times a day 2 Tabs Twice Daily 1 Active aspirin ([place]) 81 mg capsule Take 81 mg by mouth daily 2 Active hydrocortisone (ANUSOL-HC) 2.5 % rectal cream Insert into the rectum 2 (two) times a day 30 g 4 Active lidocaine (XYLOCAINE) 5 % ointment Apply to perianal area as needed pain. Up to 4 times daily. 30 g 1 4 Active levothyroxine (SYNTHROID) 150 mcg tablet Take 1 tablet (150 mcg total) by mouth termite helper before breakfast Active tocilizumab (ACTEMRA) 162 mg/0.9 mL syringe Inject 0.9 mL (162 mg total) under the skin every 2 (two) weeks Active Linzess 145 mcg capsule Take 1 capsule (145 mcg total) by mouth daily 4 Active rosuvastatin (CRESTOR) 10 mg tablet Take 1 tablet (10 mg total) by mouth daily 4 Active Active Problems Problem Noted Date Diagnosed Date Constipation 05/14/2024 Cervical radiculopathy 10/14/2021 Cervical spinal stenosis 10/14/2021 Lumbosacral spondylosis without myelopathy 10/14 Chronic pain of both knees 07/06/2019 Overview (10/25/2019): Rt knee 07/06/19. Lt knee 07/20/19 Assessment & Plan (10/25/2019 12:07 PM COLLECTIVE BARGAINING SPECIALIST): Noted some benefit with kenalog injections of bilateral knees but continues to have pain around her knee with exercising/walking which she feels is muscular. Start PT for bilateral knee pain which was ordered last visit. Assessment & Plan (07/06/2019 1:09 PM CDT): Complaining of pain in her knees with activity such as going up and down stairs, walking while exercising, and bending at the knee. Knee crepitus noted bilaterally on exam today suggesting OA. Discussed potential risk of infection with joint injections and patient elects to proceed with the procedure. Right knee prepped with betadine and alcohol swabs. 1cc Kenalog 40mg and 2cc lidocaine 1% injected into the right knee joint space. Patient tolerated procedure well. Will give order for left knee USG corticosteroid injection. Will also give order for PT. 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 Will obtain thyroid labs and adjust thyroid hormone replacement accordingly. Assessment & Plan (06/19/2018 6:01 PM CDT): Clinically euthyroid. Check TSH, FT4, FT3. Consider switching to [place] Abdominal bloating 06/19/2018 Assessment & Plan (06/19/2018 6:01 PM CDT): Will check Celiac Disease ab panel Chronic fatigue 06/19/2018 Assessment & Plan (01/01/2019 2:29 PM COLLECTIVE BARGAINING SPECIALIST): Likely multifactorial. Further lab testing as below. Assessment & Plan (06/19/2018 6:03 PM CDT): Check CBC, iron studies Consider GLORIA rule out, per PCP; she does note snoring She has also had difficulty with weight loss. Consider low carb, increase water intake, intermittent fasting, can augment with liraglutide or phentermine in the future Undifferentiated inflammatory arthritis 07/13/20 Overview (10/26/2018): AVISE testing with positive CCP, anti-MCV and positive for autoimmune thyroiditis. On HCQ. Rt hand/wrist US (08/10/18): Mild synovial thickening at the wrist. The rest of the MCPs and PIPs were unremarkable on examination which will have to be correlated clinically. 4th compartment effusion present. A small fluid collection seen in the 4th compartment is the only change compared to 09/22/17 US. Assessment & Plan (10/25/2019 12:04 PM COLLECTIVE BARGAINING SPECIALIST): Low cdai. Biggest complaint is pain in her lower legs/knees and has not done PT yet. Few swollen and tender joints noted on peripheral exam today. Continue plaquenil 200mg daily. BID dosing caused diarrhea. Continue meloxicam 15mg daily. Continue routine eye exams to monitor for plaquenil toxicity. Routine labs today. Follow up in 4 months. Sooner if needed. Assessment & Plan (07/06/2019 1:02 PM CDT): Cdai in remission. Denies any peripheral joint pain or swelling. Morning stiffness only lasts a few minutes. No obvious synovitis or tenderness noted on exam. Does note bilateral knee pain with activity and has crepitus on exam bilaterally suspicious for OA. Continue plaquenil 200mg daily. BID dosing caused diarrhea. Continue meloxicam 15mg daily. Continue routine eye exams to monitor for plaquenil toxicity. Follow up in 4 months. Sooner if needed. Seen with Dr. Pineda. Assessment & Plan (05/03/2019 5:03 PM CDT): Cdai in remission. Denies any peripheral joint pain or swelling. Morning stiffness only lasts a few minutes. No obvious synovitis on exam however does have minimal tenderness. Does note bilateral knee pain with activity and has crepitus on exam bilaterally suspicious for OA. Patient defers any specific treatment at this time and meloxicam may also be giving some benefit. Continue plaquenil 200mg daily. BID dosing caused diarrhea. Continue meloxicam 15mg daily. Continue routine eye exams to monitor for plaquenil toxicity. Routine labs today. Follow up in 4 months. Sooner if needed. Assessment & Plan (01/25/2019 10:11 AM CDT): Cdai in remission. Denies any peripheral joint pain or swelling. Morning stiffness lasts 30 minutes. No obvious synovitis or tenderness. Right SI joint tender on exam. Continue plaquenil 200mg daily, which has been reduduced as BID dosing causes diarrhea. Continue meloxicam 15mg daily . Continue routine eye exams to monitor for plaquenil toxicity. Routine labs today. Follow up in 3 months. Sooner if needed. Assessment & Plan (10/26/2018 11:30 AM COLLECTIVE BARGAINING SPECIALIST): Low cdai. Patient taking plaquenil 200mg daily and notes her joints are doing well and diarrhea has resolved. Patient denies much pain in hands today. Few tender and swollen joints on peripheral joint exam. Complaining of low back and right SI joint pain. Rt hand/wrist US (08/10/18): Mild synovial thickening at the wrist. The rest of the MCPs and PIPs were unremarkable on examination which will have to be correlated clinically. 4th compartment effusion present. A small fluid collection seen in the 4th compartment is the only change compared to 09/22/17 US. Patient appears to be stable on current regimen. Continue plaquenil 200mg daily and meloxicam 15mg daily. If symptoms are worsening at the decreased dose of plaquenil could consider addition of methotrexate. Routine labs today. Follow up in 3 months. Sooner if needed. Assessment & Plan (07/28/2018 1:16 PM CDT): Patient disease activity is low. Patient is to continue HCQ. She reduced dose from BID to QD due to diarrhea and this is better. Will check routine labs today. utd eye exam. Will repeat L hand u/s. f/u 3 months. Assessment & Plan (03/30/2018 11:23 AM CDT): Patient disease activity is low. Patient is to continue HCQ. She continues to have low disease activity on this regimen. Will continue to monitor for worsening disease activity. Will check routine labs today. utd eye exam. Discussed sun precautions. Suggest wrist splints at night for paresthesias. f/u 3 months. Assessment & Plan (01/11/2018 11:01 AM COLLECTIVE BARGAINING SPECIALIST): Patient disease activity is low. Patient is to continue HCQ. She continues to have low disease activity on this regimen. Will continue to monitor for worsening disease activity. Will check routine labs today. Assessment & Plan (10/12/2017 10:15 AM COLLECTIVE BARGAINING SPECIALIST): Patient disease activity is low. Patient is to HCQ. Most recent u/s with mild synovitis with effusions and synovial thickening. Will continue to monitor for worsening inflammatory disease. At this time will continue with HCQ but may need to add MTX if worsening CDAI in the future. Will check routine labs today. Assessment & Plan (07/13/2017 11:34 AM CDT): AVISE testing with positive CCP, anti-MCV and positive for autoimmune thyroiditis. On HCQ. Patient disease activity is low. Patient is to increase HCQ to one tab BID. If no relief of symptoms she is to continue HCQ BID and try samples of zorvolex instead of meloxicam. Patient complains of more tendon complaints, changing her NSAID may provide more relief for this type of pain. Will check routine labs today. Will repeat u/s prior to next Ov. If worsening will consider MTX at that time. [facility] use of drug 07/13/2017 Assessment & Plan (10/25/2019 12:05 PM COLLECTIVE BARGAINING SPECIALIST): Continue routine eye exams for plaquenil toxicity. Routine labs today. Assessment & Plan (07/28/2018 10:41 AM CDT): Will continue to monitor the patient with routine labs. Assessment & Plan (03/30/2018 11:24 AM CDT): Will continue to monitor the patient with routine labs. Assessment & Plan (01/11/2018 11:04 AM COLLECTIVE BARGAINING SPECIALIST): Will continue to monitor the patient with routine labs. Assessment & Plan (10/12/2017 10:15 AM COLLECTIVE BARGAINING SPECIALIST): Will continue to monitor the patient with routine labs. Assessment & Plan (07/13/2017 9:40 AM CDT): Will continue to monitor the patient with routine labs. Cervicalgia 07/13/2017 Assessment & Plan (07/13/2017 11:34 AM CDT): More muscle type pain. Will have patient undergo Pt. Encounters Date Type Department Care Team Description 07/25/2025 7:23 AM CDT - 07/25/2025 11:59 PM CDT Hospital Encounter [facility] [address] [place] [id number] Constipation, unspecified constipation type Discharge Disposition: Discharge to home or self care 06/12/2025 9:10 AM CDT Office Visit [facility] [address] [facility] [address] [place] [address] Conchita Reeves PA Constipation due to outlet dysfunction (Primary Dx); Rectal bleeding; History of colon polyps from Last 3 Months Immunizations Immunization Administration Dates Next Due Influenza, Unspecified 11/15/2013 ZOSTER Recombinant 10/01/2020 Surgical History Surgery Date Site/Laterality Comments PULMONARY EMBOLISM SURGERY 11/15/2004 - 11/14/2005 denies surgry, states they were just disolved ECTOPIC 11/15/2004 - 11/14/2005 LUMBAR PUNCTURE WO INJECTION, DIAGNOSTIC 12/10/2021 N/A PARTIAL HYSTERECTOMY INCONTINENCE SURGERY HYSTERECTOMY 11/15/2020 - 11/14/2021 COLONOSCOPY 06/14/2024 Medical History Medical History Date Comments Hyperlipidemia Weakness always tired Fatigue always tired Rheumatoid arthritis (HCC) Pain muscle and tendo n tightness and pain Iban's thyroiditis Viral meningitis 2014 PONV (postoperative nausea and vomiting) Chronic constipation Stroke (HCC) PE (pulmonary thromboembolism) Anxiety RA (rheumatoid arthritis) Family History Medical History Relation Name Comments Colon polyps Father Hyperlipidemia Father Lung cancer Mother Relation Name Status Comments Father Mother Social History Tobacco Use Types Packs/Day Years Used Date Smoking Tobacco: Some Days Cigarettes Started: 1997; Last attempted to quit: 2002 Smokeless Tobacco: Never Tobacco Cessation:Ready to Q uit: Not Asked; Counseling Given: Not Answered Alcohol Use Standard Drinks/Week Comments Yes 4 (1 standard drink = 0.6 oz pur e alcohol) SOCIALLY AUDIT-C Answer Date Recorded Q1: How often do you have a drink containing alc ohol? Monthly or less 12/26/2024 Q2: How many drinks containi ng alcohol do you have on a typical day when you are drinking? 3 or 4 12/26/2024 Q3: How often do you have si x or more drinks on one occasion? Weekly 12/26/2024 Personal Safety Answer Date Recorded Have you ever been in or are you currently in a harmful physical or emotional relationship or is someone making you feel afraid or unsafe? 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 Not on file Not on file Obstetrics History Last Filed Vital Signs Vital Sign Reading Time Taken Comments Blood Pressure 124/84 06/12/2025 9:12 AM CDT Pulse 68 06/12/2025 9:12 AM CDT Temperature 36.5 C (97.7 F) 06/21/2024 9:20 AM CDT Respiratory Rate 17 06/14/2024 11:27 AM CDT Oxygen Saturation 97% 06/21/2024 9:20 AM CDT Inhaled Oxygen Concentration - - Weight 68.3 kg (150 lb 9.6 oz) 06/12/2025 9:12 A M CDT Height 167.6 cm (5' 6) 06/12/2025 9:12 AM CDT Body Mass Index 24.31 06/12/2025 9:12 AM CDT Plan of Treatment Health Maintenance Due Date Last Done Comments Breast Cancer Screening-Mammogram 1981 Depression Screening 1981 Hepatitis C Screening 1981 Varicella Vaccines (1 of 2 - 13+ 2-dose series) 1993 Hepatitis B Screening 1999 Regular Well Visit/Exam 18-64 1999 Pneumococcal vaccine <65 (1 of 2 - PCV) 2000 HPV Vaccines (1 - 3-dose SCDM series) 2008 Zoster Vaccine (2 of 2) 11/26/2020 10/01/2020 DTaP/Tdap/Td Vaccine (2 - Td or Tdap) 07/28/2021 Influenza Vaccine (#1) 2025 11/15/2013 Procedures Procedure Name Priority Date/Time Associated Diagnosis Comments FL ENEMA W/DEFECO Schedule Routine, Read Routine (OP Routine) 07/25/2025 9:20 AM CDT Constipation, unspecified constipation type from Last 3 Months Results * FL Defecogram (07/25/2025 9:20 AM CDT) Anatomical Region Laterality Modality Body N/A Radio Fluoroscop y 07/25/2025 9:26 AM CDT Impressions 07/25/2025 9:30 AM CDT 1. Small anterior rectocele. 2. Normal pelvic elevation with Kegel maneuvers, and no fecal incontinence with coughing. Dictated by: Rita Mensah M.D. The radiology attending physician has personally reviewed this study, and had reviewed and/or edited this written report and agrees with it. Electronically signed by: Will Colorado M.D. Narrative 07/25/2025 9:30 AM CDT EXAMINATION: DEFECOGRAM HISTORY: 44-year-old, history of hysterectomy, constipation, history of bladder prolapse, tissue bulging with bowel movement and feeling of incomplete evacuation. TECHNIQUE: The patient was given oral barium to opacify the small bowel approximately 45 minutes prior to the examination. A barium soaked tampon was inserted into the vagina. The rectal exam was normal. Approximately 300 cc of barium was instilled rectally. The patient was then asked to cough, contract the pelvic floor, strain, and defecate. FINDINGS: The betting agency counter clerk radiograph normal bowel gas pattern. With cough, incontinence was not present. With Kegel maneuvers, the pelvic floor elevated normally. With defecation, the anorectal angle became more obtuse. There is a small anterior rectocele measuring approximately 2 x 1.7 cm. Procedure Note Will Colorado MD PhD - 07/25/2025 EXAMINATION: DEFECOGRAM HISTORY: 44-year-old, history of hysterectomy, constipation, history of bladder prolapse, tissue bulging with bowel movement and feeling of incomplete evacuation. TECHNIQUE: The patient was given oral barium to opacify the small bowel approximately 45 minutes prior to the examination. A barium soaked tampon was inserted into the vagina. The rectal exam was normal. Approximately 300 cc of barium was instilled rectally. The patient was then asked to cough, contract the pelvic floor, strain, and defecate. FINDINGS: The betting agency counter clerk radiograph normal bowel gas pattern. With cough, incontinence was not present. With Kegel maneuvers, the pelvic floor elevated normally. With defecation, the anorectal angle became more obtuse. There is a small anterior rectocele measuring approximately 2 x 1.7 cm. IMPRESSION: 1. Small anterior rectocele. 2. Normal pelvic elevation with Kegel maneuvers, and no fecal incontinence with coughing. Dictated by: Rita Mensah M.D. The radiology attending physician has personally reviewed this study, and had reviewed and/or edited this written report and agrees with it. Electronically signed by: Will Colorado M.D. Conchita [place] IMG FLUOROSCOPY PROCEDU RES Final Result from Last 3 Months Insurance [facility] [employer] ALLEGIANCE Advance Directives For more information, please contact: [phone] * Full Code (Latest Code Status on File) Date Activated Date Inactivated Comments 06/14/2024 9:47 AM 06/14/2024 3:41 PM Care Teams Lodge Attendant Relationship Specialty Start Date End Date Ольга Chun PA PCP - General 03/19/17 Edenilson Pineda III, MD [address] [place] [address] Rheumatology 09/22/17 Leah Diaz NP [address] [place] [address] Registered Nurse Neurosurgery 02/02/22 Harshad Durham MD [address] [place] [address] Neurologist Neurology 02/02/22
--- OUTSIDE RECORDS SUMMARY | 2025-09-11 08:59 | XMS_ITS | Clinical Summary ---
Author Organization [facility] Address [address] [place] [address] Care Team Providers Care Correspondence Analyst Name Role Phone Will Bah MD Primary Care Provider [phone] Source Comments [facility],non-owned Affiliates and Associated Physician Practices is amultiple site organization consisting of ambulatory clinics and hospital sitesin [place], [place], [place] and [place]. This disclosure is being madepursuant to the Care Everywhere program and may not contain all information available regarding this patient. Last updated 18.[facility] Medications * Be aware that medications may not be up to date on this document. Alwaysverify current medications with the patient. No known medications Active Problems No known active problems Social History Tobacco Use Types Packs/Day Years Used Date Smoking Tobacco: Some Days Smokeless Tobacco: Never Comments Unknown Sex and Gender Information Value Date Recorded Sex Assigned at Not on file Legal Sex Female 11:30 AM CDT Gender Identity Not on file Sexual Orientation Not on file Last Filed Vital Signs Vital Sign Reading Time Taken Comments Blood Pressure 126/85 02/10/2022 12:40 PM CDT Pulse 69 02/10/2022 12:40 PM CDT Temperature 36.2 C (97.1 F) 02/10/2022 12:40 PM CDT Respiratory Rate 18 02/10/2022 12:40 PM CDT Oxygen Saturation 99% 02/10/2022 12:40 PM CDT Inhaled Oxygen Concentration - - Weight 69.7 kg (153 lb 9.6 oz) 02/10/2022 12:40 PM CDT Height 165.1 cm (5' 5) 02/10/2022 12:40 PM CDT Body Mass Index 25.56 02/10/2022 12:40 PM CDT Plan of Treatment Health Maintenance Due Date Last Done Comments MAMMOGRAM 1981 HIV SCREENING 1996 HEPATITIS C SCREENING 10/04/1999 DTAP/TDAP/TD VACCINES (1 - Tdap) 2000 HEPATITIS B VACCINE (1 of 3 - 19+ 3-dose series) 2000 PNEUMOCOCCAL VACCINE (1 of 2 - PCV) 2000 PAP SMEAR 2002 HPV VACCINE (1 - 3-dose SCDM series) 2008 SCREENING FOR DIABETES 02/10/2022 DEPRESSION SCREENING 11/15/2024 COVID-19 VACCINE ( - season) 2025 INFLUENZA VACCINE (#1) 2025 11/15/2013 LIPID TESTING 01/22/2027 01/22/2022, 05/2022, 01/24/2020, Additional history exists ZOSTER VACCINE (1 of 2) 2031 HIB VACCINE Aged Out No longer eligi ble based on patient's age to complete this topic MENINGOCOCCAL (Group B) VACCINE SHARED DECISION-MAKING Aged Out No longer eligible based on patient's age to complete this topic MENINGOCOCCAL GROUPS A/C/Y/W VACCINE Aged Out No longer eligible based on patient's age to complete this topic Procedures Procedure Name Priority Date/Time Associated Diagnosis Comments LIPID PROFILE Routine 11/15/1998 12:00 AM ADMINISTRATIVE LAW JUDGE from Last 3 Months or Most Recently Relevant to Health Maintenance Results * (ABNORMAL) LIPID PROFILE (11/15/1998 12:00 AM ADMINISTRATIVE LAW JUDGE) Cholesterol Total [facility] HDL 28 mg/dL [facility] Triglycerides 184 mg/dL [place] LDL Calculated [facility] LDL Calculated 112 mg/dL [facility] Venous blood specimen (specimen) 11/15/1998 Narrative [facility] - 11/15/1998 12:00 AM ADMINISTRATIVE LAW JUDGE This external order was created through the Results Console. Preferred Lab:->[facility] Historical Provider LAB - CHEMISTRY ORDERABLE S Final Result [address] from Last 3 Months or Most Recently Relevant to Health Maintenance Insurance [employer] Care Teams Correspondence Analyst Relationship Specialty Start Date End Date Will Bah MD PCP - General 07/08/20
== END 2025-09-11 08:40 | disposition home or self-care (01) ==
PROVIDERS: PCP Physician Assistant; Visit Provider Nurse Practitioner Obstetrics & Gynecology
DX: N64.52 Nipple discharge (principal)
CPT/HCPCS: 76641; 77062; 77066; G0279

== ENCOUNTER 2025-10-18 14:09 | Outpatient (CLI) | payer OTHER, SELFPAY ==
--- NOTE | ~2025-10-18 | MR_ITS ---
EXAMINATION: MR brain/brain stem wo/w con DATE: 10/18/2025 15:57 INDICATION: Slurred speech TECHNIQUE: Magnetic resonance imaging (MRI) of the brain and brainstem was performed without and with 15 mL Multihance intravenous contrast. Sequences included sagittal and axial T1-weighted SE, axial diffusion-weighted FS SE, axial T2*-weighted GRE, axial T2-weighted FLAIR, and axial T2-weighted FSE. Postcontrast axial and coronal T1-weighted SE was obtained. Apparent diffusion coefficient (ADC) maps were created. COMPARISON: None. FINDINGS: Small old lacunar infarct in the right cerebellar hemisphere. There are no areas of restricted diffusion to suggest acute infarction. There is a subtle lesion in the left ghazala measuring approximate 5 mm with minimal increased T2 signal and surrounding a 3 mm focus of subtle enhancement. 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 No acute intracranial hemorrhage or other abnormal intracranial mass lesion. The ventricles are symmetric and normal in size. There are no abnormal extra-axial fluid collections. Flow voids are seen in the cerebral arteries on the T2- weighted sequences consistent with their expected patency. Visualized orbits and soft tissues are unremarkable. There are no other areas of abnormal enhancement on the post contrast images. IMPRESSION: 1. Small old lacunar infarct in the right cerebellar hemisphere. No acute intracranial process. 2. Subtle 3 mm focus of enhancement and associated susceptibility artifact in the left ghazala. Differential would include cavernous malformation or other nonspecific neoplasm with secondary microhemorrhage including metastatic disease in the appropriate clinical setting. Correlate with clinical history and with any prior outside imaging if available. Reviewed, dictated and finalized at location [facility] IMPRESSION: 1. Small old lacunar infarct in the right cerebellar hemisphere. No acute intra cranial process. 2. Subtle 3 mm focus of enhancement and associated susceptibility artifact in t he left ghazala. Differential would include cavernous malformation or other nonspe cific neoplasm with secondary microhemorrhage including metastatic disease in t he appropriate clinical setting. Correlate with clinical history and with any p rior outside imaging if available.
== END 2025-10-18 14:10 | disposition home or self-care (01) ==
LOC: CHSIMG 14:11
PROVIDERS: PCP Physician Assistant; Visit Provider Physician Assistant
DX: R47.81 Slurred speech (principal); Z86.73 Personal history of transient ischemic attack (TIA), and cerebral infarction without residual deficits
CPT/HCPCS: 70553; A9577